=== PATIENT | male | born 1945 | race Two or more races ===

== ENCOUNTER → 2022-05-12 | Outpatient (CLI) | payer OTHER ==
[2022-05-12 10:52] LABS: Basophils # (auto) 0.1 10 ^3/uL (0-0.2); Eosinophils # (auto) 0.1 10 ^3/uL (0-0.8); Eosinophils % (auto) 1.7 % (0.0-7.0); Lymphocytes # (auto) 2.1 10 ^3/uL (0.4-5.4)
[2022-05-12 10:54] LABS: Basophils % (auto) 1.2 % (0.0-2.0); Hematocrit 45.3 % (41.0-53.0); Hemoglobin 14.4 g/dL (13.5-17.5); Mean Corpuscular Hemoglobin 26.6 pg (28.0-32.0); Mean Corpuscular Hgb Conc. 31.9 g/dL (32.0-36.0); Mean Corpuscular Volume 83.5 fL (80.0-100.0); Monocytes # (auto) 0.5 10 ^3/uL (0-1.3); Monocytes % (auto) 8.1 % (0.0-12.0); Neutrophils # (auto) 3.9 10 ^3/uL (1.6-8.6); Red Blood Cells 5.43 10^6/uL (4.5-5.90); Red Cell Distribution Width 15.8 % (11.8-14.3); White Blood Cell 6.7 10^3/uL (4.4-10.8)
[2022-05-12 11:22] LABS: Albumin 3.9 g/dL (3.4-5.0); Potassium 3.6 mmol/L (3.5-5.1)
[2022-05-12 11:27] LABS: BUN/Creatinine Ratio 11.4; Bilirubin, Total 0.4 mg/dL (0.2-1.0); Total Protein 7.3 g/dL (6.4-8.2)
[2022-05-12 11:33] LABS: Micro Albumin 73.1 mg/L (0-30.0)
[2022-05-12 11:40] LABS: Prostate Specific Antigen 9.44 ng/mL (0.0-4.0)
== END | disposition home or self-care (01) ==
LOC: LAB 10:31
DX: E11.8 Type 2 diabetes mellitus with unspecified complications (principal)
CPT/HCPCS: 36415; 80053; 80061; 82043; 82306; 82570; 82607; 83036; 84153; 84154; 84443; 85025

== ENCOUNTER 2023-03-22 12:29 | Emergency (ER) | payer OTHER ==
[~2023-03-22] VITALS: Ht 167.6 cm; Wt 72.7 kg
[2023-03-22 13:39] VITALS: BP 168/90; PULSE 98; RESP 16; O2SAT 97
== END 2023-03-22 16:32 | disposition left against medical advice (07) ==
LOC: ER 12:29 → EDBD 12:29 → ER 16:32
DX: M79.675 Pain in left toe(s) (principal); Z53.21 Procedure and treatment not carried out due to patient leaving prior to being seen by health care provider

== ENCOUNTER 2023-07-14 10:42 | Inpatient (IN) | payer MEDICAID, OTHER ==
[~2023-07-14] VITALS: Ht 170.2 cm; Wt 66.9 kg
[2023-07-14] VITALS (7 sets, daily range): BP systolic 146–181; BP diastolic 61–65; PULSE 64–90; RESP 16–23; TEMP 98.5; O2SAT 90–100
[2023-07-14 11:09] LABS: Eosinophils # (auto) 0.1 10 ^3/uL (0-0.8); Eosinophils % (auto) 0.9 % (0.0-7.0); Monocytes # (auto) 0.9 10 ^3/uL (0-1.3); Neutrophils # (auto) 8.9 10 ^3/uL (1.6-8.6)
[2023-07-14 11:10] LABS: Basophils # (auto) 0.1 10 ^3/uL (0-0.2); Basophils % (auto) 0.8 % (0.0-2.0); Hematocrit 44.6 % (41.0-53.0); Hemoglobin 14.5 g/dL (13.5-17.5); Lymphocytes # (auto) 1.2 10 ^3/uL (0.4-5.4); Lymphocytes % (auto) 10.4 % (10.0-50.0); Mean Corpuscular Hemoglobin 26.7 pg (28.0-32.0); Mean Corpuscular Hgb Conc. 32.5 g/dL (32.0-36.0); Mean Corpuscular Volume 82.3 fL (80.0-100.0); Neutrophils % (auto) 79.9 % (37.0-80.0); Nucleated Red Blood Cells % 0.1 %; Red Blood Cells 5.42 10^6/uL (4.5-5.90); Red Cell Distribution Width 15.8 % (11.8-14.3); White Blood Cell 11.2 10^3/uL (4.4-10.8)
[2023-07-14 11:17] LABS: Urine Bacteria None Seen /hpf (None Seen)
[2023-07-14 11:31] LABS: Alkaline Phosphatase 84 U/L (46-116); Anion Gap 5 (5-15); Aspartate Aminotransferase 20 U/L (13-40); BUN/Creatinine Ratio 18.5 (10.0-20.0); Blood Urea Nitrogen 17 mg/dL (9-23); Calcium 9.5 mg/dL (8.5-10.1); Carbon Dioxide 27 mmol/L (20-30); Chloride 109 mmol/L (98-107); Glucose 176 mg/dL (74-106); Potassium 4.1 mmol/L (3.5-5.1); Sodium 141 mmol/L (136-145)
[2023-07-14 11:32] LABS: Bilirubin, Total 0.6 mg/dL (0.2-1.0); Total Protein 6.3 g/dL (5.7-8.2)
[2023-07-14 11:38] LABS: Alanine Aminotransferase < 9 U/L (7-40)
[2023-07-14 11:50] LABS: Urine Blood Negative /uL (Negative); Urine Clarity Clear (Clear); Urine Color Light-Yellow (Yellow); Urine Hyaline Cast FEW /lpf (0 - 2); Urine Mucus FEW (None Seen); Urine Protein, UAD TRACE (Negative); Urine Specific Gravity 1.017 (1.001-1.035); Urine Urobilinogen Normal (Negative); Urine WBC 3 /hpf (0 - 3)
[2023-07-14] MEDS: IOHEXOL 350 MG/ML 100ML IJ ONE (11:56)
[2023-07-14] MEDS: VERAPAMIL HCL 40 MG TAB PO ONE (15:30)
[2023-07-14] MEDS ORDERED: MORPHINE SULFATE INJ 2 MG/ml SYRG IV PRN ×2 (15:45)
[2023-07-14] MEDS ORDERED: ONDANSETRON HCL 4 MG/2 ML VIAL IV PRN (15:45)
[2023-07-14] MEDS ORDERED: NITROGLYCERIN 0.4 MG SL TAB SL PRN (15:45)
[2023-07-14] MEDS ORDERED: ACETAMINOPHEN 325 MG TAB PO PRN (15:45)
[2023-07-14] MEDS ORDERED: NIFE1TAB31 PO (15:48)
[2023-07-14] MEDS ORDERED: ATOR40TA52 PO (15:48)
[2023-07-14] MEDS ORDERED: VERA240C2 PO (18:22)
[2023-07-14] MEDS: ceFAZolin 1GM/50ML 50 ML IV ONE (18:39)
[2023-07-14] MEDS: ATORVASTATIN 20 MG TAB PO SCH (21:15)
[2023-07-14] MEDS: hydrALAZINE HCL 20 MG/ML VL IV PRN (21:17)
[2023-07-14] MEDS: ALBUTEROL SULF 2.5 MG/0.5ML(0.5%) NEB SOLN NEB PRN (21:44)
[2023-07-14] MEDS: IPRATROPIUM BROM 0.5 MG/2.5ML INH SOL NEB PRN (21:44)
[2023-07-14] MEDS ORDERED: ceFAZolin 1GM/50ML 50 ML IV SCH (22:00)
[2023-07-14 22:47] LABS: COVID19 ANTIGEN SOFIA FIA NEGATIVE (NEGATIVE)
[2023-07-14 23:07] LABS: Rapid Influenza A Negative (Negative); Rapid Influenza B Negative (Negative)
[2023-07-15] VITALS (7 sets, daily range): BP systolic 130–173; BP diastolic 49–88; PULSE 66–102; RESP 16–20; TEMP 98–99; O2SAT 98–100
[2023-07-15 05:49] LABS: Basophils # (auto) 0 10 ^3/uL (0-0.2); Basophils % (auto) 0.5 % (0.0-2.0); Eosinophils # (auto) 0.2 10 ^3/uL (0-0.8); Hemoglobin 14.4 g/dL (13.5-17.5); Monocytes # (auto) 0.8 10 ^3/uL (0-1.3)
[2023-07-15 05:51] LABS: Lymphocytes # (auto) 1.6 10 ^3/uL (0.4-5.4); Lymphocytes % (auto) 18.6 % (10.0-50.0); Mean Corpuscular Hemoglobin 26.4 pg (28.0-32.0); Mean Corpuscular Volume 82.6 fL (80.0-100.0); Monocytes % (auto) 9.1 % (0.0-12.0); Neutrophils # (auto) 5.9 10 ^3/uL (1.6-8.6); Neutrophils % (auto) 69.8 % (37.0-80.0); Nucleated Red Blood Cells % 0.1 %; Red Blood Cells 5.44 10^6/uL (4.5-5.90); White Blood Cell 8.5 10^3/uL (4.4-10.8)
[2023-07-15 06:03] LABS: Alanine Aminotransferase 17 U/L (7-40); Albumin 3.9 g/dL (3.2-4.8); Alkaline Phosphatase 76 U/L (46-116); Anion Gap 5 (5-15); Aspartate Aminotransferase 25 U/L (13-40); BUN/Creatinine Ratio 11.6 (10.0-20.0); Blood Urea Nitrogen 10 mg/dL (9-23); Calcium 9.3 mg/dL (8.5-10.1); Carbon Dioxide 28 mmol/L (20-30); Chloride 110 mmol/L (98-107); Cholesterol 155 mg/dL (< 200); Glucose 92 mg/dL (74-106); HDL Cholesterol 37 mg/dL (40-59); LDL Cholesterol 106 mg/dL (< 100); Potassium 3.8 mmol/L (3.5-5.1); Sodium 143 mmol/L (136-145); Triglycerides 84 mg/dL (< 150)
[2023-07-15 06:04] LABS: Bilirubin, Total 0.6 mg/dL (0.2-1.0); Total Protein 6.5 g/dL (5.7-8.2)
[2023-07-15] MEDS: NIFEdipine ER 30 MG TAB PO SCH (08:22)
[2023-07-15] MEDS: PANTOPRAZOLE 40 MG TAB PO SCH (08:23)
[2023-07-15] MEDS: cefTRIAXone 1GM/50ML D5W 50 ML IV SCH (08:34)
[2023-07-15] MEDS: ENOXAPARIN SOD 40 MG/0.4 ML SYRINGE SC SCH (09:34)
[2023-07-15] MEDS: AZITHROMYCIN 500MG/ 250ML 250 ML IV SCH (09:35)
[2023-07-15 12:12] LABS: Urine Bacteria None Seen /hpf (None Seen)
[2023-07-15 12:22] LABS: Urine Blood Negative /uL (Negative); Urine Clarity Clear (Clear); Urine Color Yellow (Yellow); Urine Mucus FEW (None Seen); Urine Protein, UAD TRACE (Negative); Urine Urobilinogen Normal (Negative); Urine WBC 6 /hpf (0 - 3)
[2023-07-15 12:44] LABS: Amphetamine Screen, Urine Neg (NEGATIVE)
[2023-07-15 12:45] LABS: Barbiturate Scree,Urine Neg (NEGATIVE); Benzodiazephine Screen, Urine Neg (NEGATIVE); Cannabinoid Screen, Urine Neg (NEGATIVE); Cocaine Screen, Urine Neg (NEGATIVE); Opiate Scree,Urine Neg (NEGATIVE); Phencyclidine Screen, Urine Neg (NEGATIVE)
[2023-07-15] MEDS: ASPirin 325 MG TAB PO ONE (14:00)
[2023-07-15] MEDS: FUROSEMIDE 40 MG/4 ML VIAL IV ONE (14:00)
[2023-07-15] MEDS: FUROSEMIDE 20 MG/2 ML VIAL IV SCH (18:37)
[2023-07-15] MEDS: METOPROLOL TARTRATE 25 MG TAB PO SCH (22:24)
[2023-07-16] VITALS (9 sets, daily range): BP systolic 123–161; BP diastolic 54–102; PULSE 62–91; RESP 14–20; TEMP 97.8–98.4; O2SAT 94–100
[2023-07-16] MEDS ORDERED: ASPirin 81 mg TAB PO SCH (10:00)
[2023-07-16] MEDS: NIFEdipine ER 30 MG TAB PO SCH (10:07)
[2023-07-16] MEDS ORDERED: HYDR25TA4 PO (10:15)
[2023-07-16] MEDS: REGADENOSON 0.4 MG/5 ML SYRG IV ONE ×2 (12:00→12:02)
[2023-07-17] VITALS (9 sets, daily range): BP systolic 129–159; BP diastolic 49–71; PULSE 55–75; RESP 15–18; TEMP 97.6–98.7; O2SAT 96–100
[2023-07-17] MEDS: DOCUSATE SOD 100 MG CAP PO PRN (06:19)
[2023-07-17] MEDS: HYDROcodone-ACET 5/325MG TAB PO PRN (13:20)
[2023-07-17] MEDS: RIVAROXABAN 2.5 MG TAB PO SCH (22:06)
[2023-07-18] VITALS (8 sets, daily range): BP systolic 134–168; BP diastolic 47–93; PULSE 55–89; RESP 17–20; TEMP 97.5–98.7; O2SAT 96–100
[2023-07-18] MEDS: FUROSEMIDE 20 MG/2 ML VIAL IV ONE (08:31)
[2023-07-18] MEDS: CLOPIDOGREL BISULFATE 75 MG TAB PO SCH (08:31)
[2023-07-18] MEDS ORDERED: NIFE1TAB31 PO (14:44)
[2023-07-18] MEDS ORDERED: ASPI-325 PO (14:44)
[2023-07-18] MEDS ORDERED: RIVA2.5T PO (14:44)
[2023-07-18] MEDS ORDERED: MET25T PO (14:44)
[2023-07-18] MEDS ORDERED: CLOP75TA70 PO (14:44)
[2023-07-19] VITALS (8 sets, daily range): BP systolic 138–158; BP diastolic 56–80; PULSE 16–69; RESP 17–100; TEMP 97.6–98.6; O2SAT 96–100
[2023-07-19 11:14] LABS: Folate (Folic Acid) 11.05 ng/mL (>5.38)
[2023-07-19 11:16] LABS: Free T4 (Free Thyroxine) 1.01 ng/dL (0.89-1.76)
[2023-07-20 01:03] VITALS: BP 142/60; PULSE 62; RESP 20; TEMP 97.9; O2SAT 100
[2023-07-20 05:00] VITALS: BP 157/55; PULSE 54; RESP 17; TEMP 98; O2SAT 100
[2023-07-20 08:00] VITALS: PULSE 66
[2023-07-20 09:00] VITALS: BP 151/69; PULSE 70; RESP 23; TEMP 97.2; O2SAT 97
[2023-07-20 09:18] LABS: Basophils # (auto) 0.1 10 ^3/uL (0-0.2); Eosinophils # (auto) 0.2 10 ^3/uL (0-0.8); Lymphocytes # (auto) 2.4 10 ^3/uL (0.4-5.4); Monocytes # (auto) 0.5 10 ^3/uL (0-1.3); Neutrophils # (auto) 2.7 10 ^3/uL (1.6-8.6); White Blood Cell 5.9 10^3/uL (4.4-10.8)
[2023-07-20 09:21] LABS: Basophils % (auto) 1.1 % (0.0-2.0); Eosinophils % (auto) 3.9 % (0.0-7.0); Hemoglobin 15.2 g/dL (13.5-17.5); Lymphocytes % (auto) 41.3 % (10.0-50.0); Mean Corpuscular Hgb Conc. 32.3 g/dL (32.0-36.0); Mean Corpuscular Volume 83.8 fL (80.0-100.0); Monocytes % (auto) 8.5 % (0.0-12.0); Neutrophils % (auto) 45.2 % (37.0-80.0); Nucleated Red Blood Cells % 0.1 %; Red Blood Cells 5.61 10^6/uL (4.5-5.90); Red Cell Distribution Width 15.1 % (11.8-14.3)
[2023-07-20 09:30] LABS: Anion Gap 4 (5-15); Carbon Dioxide 33 mmol/L (20-30); Chloride 103 mmol/L (98-107); Potassium 4.1 mmol/L (3.5-5.1); Sodium 140 mmol/L (136-145)
[2023-07-20 09:31] LABS: Calcium 9.7 mg/dL (8.5-10.1)
[2023-07-20 09:36] LABS: BUN/Creatinine Ratio 21.9 (10.0-20.0); Blood Urea Nitrogen 23 mg/dL (9-23); Glucose 188 mg/dL (74-106)
[2023-07-20 10:20] LABS: Magnesium 1.9 mg/dL (1.6-2.6)
== END 2023-07-20 14:00 | disposition home or self-care (01) | DRG 311 ==
LOC: ER 10:42 → EDBD 10:42 → TELE 15:47 → TELE-WESTW 18:21
PROVIDERS: ADMIT Nurse Practitioner Family; ATTEND Internal Medicine
DX: I24.9 Acute ischemic heart disease, unspecified (principal); J15.69 Pneumonia due to other Gram-negative bacteria; J15.9 Unspecified bacterial pneumonia; I50.31 Acute diastolic (congestive) heart failure; E11.52 Type 2 diabetes mellitus with diabetic peripheral angiopathy with gangrene; I11.0 Hypertensive heart disease with heart failure; I16.0 Hypertensive urgency; D72.829 Elevated white blood cell count, unspecified; M71.21 Synovial cyst of popliteal space [Baker], right knee; Z20.822 Contact with and (suspected) exposure to COVID-19; C61 Malignant neoplasm of prostate; E78.5 Hyperlipidemia, unspecified; E11.621 Type 2 diabetes mellitus with foot ulcer; N40.0 Benign prostatic hyperplasia without lower urinary tract symptoms; F17.210 Nicotine dependence, cigarettes, uncomplicated; L97.529 Non-pressure chronic ulcer of other part of left foot with unspecified severity; Z88.6 Allergy status to analgesic agent; Z79.899 Other long term (current) drug therapy; I69.349 Monoplegia of lower limb following cerebral infarction affecting unspecified side; Z79.02 Long term (current) use of antithrombotics/antiplatelets; Z95.5 Presence of coronary angioplasty implant and graft
CPT/HCPCS: 36415; 70551; 71045; 71260; 73700; 74177; 78452; 80048; 80053; 80061; 80307; 81001; 82607; 82746; 83036; 83605; 83735; 83880; 84439; 84443; 84484; 85025; 85379; 87040; 87077; 87086; 87186; 87426; 87804; 93005; 93017; 93306; 93925; 94640; 96374; 97110; 97116; 97163; 97530; G0378

== ENCOUNTER 2024-10-21 14:50 | Inpatient (IN) | payer MEDICAID, OTHER ==
[~2024-10-21] VITALS: Ht 167.6 cm; Wt 61.8 kg
[~2024-10-21 14:50] MED LIST: ASPI-325 PO; ATOR40TA52 PO; CLOP75TA70 PO; HYDR25TA4 PO; MET25T PO; NIFE1TAB31 PO; RIVA2.5T PO; VERA240C2 PO
--- NOTE | 2024-10-21 15:09 | ED.PDOC ---
General HPI Comments HPI: 78y M who presents to the ED via EMS for chief complaint of urinary complaints - EMS states they were called to the scene after has been having difficulty voiding for the past 1 hours - EMS arrived on scene and noted pt was lying in bed with noted urine on bed and pt voiding in near by garbage can - pt is bed bound and states he has been having RLQ and R leg pain and notes despite using CBD oil on the penis, he is continuing to have pain - pt states his pain started last night at 1999 but states it has been exacerbated to due the urinary retention - pt states he has intermittent episodes of urinary retention but states he called EMS due to increasing pain not experienced before while having difficulty attempting to void - Pt has noted R knee hyperflexion contractions which he states is baseline Patient has home health nurse Wednesday through Wednesday but not on weekends. Patient did not take his blood pressure medications today. Past Medical History: HTN, CVA, DM 2 Past Surgical History: denies Social History: Denies ETOH, endorses smoking, denies drug use. Medications: verapamil Allergies: sulfa, ASA HPI: Poor Historian. REVIEW OF SYSTEMS: CONSTITUTIONAL: Denies acute: fever, diaphoresis, chills, HEAD: Denies acute: headache, photophobia Eyes: Denies acute: Double vision, vision loss, eye pain, eye discharge. EARS: Denies acute: tinnitus, hearing loss, ear discharge, ear pain, THROAT: Denies acute: sore throat, swelling, difficulty swallowing , pain with swallowing, change in voice. NECK: Denies acute: neck pain, neck swelling, stiff neck. HEART: Denies acute : chest pain, palpitations, LUNGS: Denies acute: SOB, wheezing, cough, hemoptysis ABDOMEN: Denies acute: Nausea, Vomiting, diarrhea, melena , hematemesis, hematochezia SKIN: Denies acute: rash, redness, lesions, itchiness. EXTREMITIES: Denies acute: calf pain, numbness, tingling, weakness, denies pain in extremity. Denies acute: Low back pain. Neuro: Denies acute: focal neurological deficit, motor or sensory focal neurological deficit, tremors, seizure like activity, confusion, dizziness, change in mental status, loss of bowel or bladder function, cauda equina like symptoms. : Denies acute: dysuria, hematuria, flank pain, increase in urinary frequency. PSYCH: Denies acute: hallucination, suicidal ideation, homicidal ideation. PHYSICAL EXAM: General: ---mild----acute distress, awake and alert. Head: normocephalic, atraumatic. Neck: supple, trachea is midline, no swelling. Throat: Normal phonation. Eyes:, no erythema, no purulent discharge, no proptosis, no icterus. Heart: regular rate, regular rhythm, no significant murmur appreciated. Lungs: no apparent respiratory distress, Able to speak in full sentences. No wheezing, no rhonchi, no crackles. No stridors Clear to auscultation bilaterally. Abdomen: Mild suprapubic tender to palpation, non distended, soft, no guarding, no rebound, + bowel sounds. Neuro: Awake, Alert, oriented to name, self, situation, follows commands GCS=15. Speech is normal. Skin: no petechia, no purpura, no cyanosis, non-pale, not jaundice. Lower extremities: --no - Pitting edema no deformity, no focal swelling, no calf TTP. Makes eye contact. Left eye chronic injury/blindness Uncircumcised external male genitalia. Face: no apparent facial droop. 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 Patient is nonambulatory. Patient is bed ridden. ED COURSE: DISCLAIMER: This medical document was created using an electronic medical record system with voice recognition software and computerized dictation system. Although this document has been carefully reviewed, there might still be some phonetic and typographical errors. Occasional wrong-word or "sound-alike" substitutions may have occurred due to the inherent limitations of voice recognition software. These areas are purely typographical due to imperfections of the software programs and do not reflect any compromise in the patient's medical care. Please read the chart carefully and recognize, using context, where these substitutions have occurred. Chief Complaint: Urinary Time Seen by MD: 15:08 Primary Care Provider: [place] Reviewed notes: Medications, Allergies Allergies: Coded Allergies: Acetaminophen (Verified Allergy, Unknown, 10/25/24) Aspirin (Verified Allergy, Unknown, 07/14/23) Home Meds Active Scripts Oxycodone W/ Acetaminophen (Percocet 5/325MG) 1 Tab Tb, 2 TAB PO Q4HP PRN for 10 Days, #100 TAB Prov:FINN LEMA MD 10/27/24 Senna (Senna) 8.6 Mg Tab, 8.6 MG PO HS for 30 Days, #30 TAB Prov:FINN LEMA MD 10/27/24 Rivaroxaban (Xarelto) 2.5 Mg Tab, 2.5 MG PO BID for 30 Days, #60 TAB 6 Refills Prov:KATHRYN OBREGON DO 07/18/23 Nifedipine (Nifedipine Er) 30 Mg Tab, 90 MG PO DAILY for 30 Days, #90 TAB 6 Refills Prov:KATHRYN OBREGON DO 07/18/23 Metoprolol Tartrate (Lopressor) 25 Mg Tb, 25 MG PO BID for 30 Days, #60 TAB 6 Refills Prov:KATHRYN OBREGON DO 07/18/23 Clopidogrel Bisulfate (CLOPIDOGREL) 75 Mg Tab, 75 MG PO DAILY for 30 Days, #30 TAB 6 Refills Prov:KATHRYN OBREGON DO 07/18/23 Aspirin (Aspirin Low Dose) 81 Mg Tab, 81 MG PO DAILY for 30 Days, #30 TAB 6 Refills Prov:KATHRYN OBREGON DO 07/18/23 Reported Medications Hydrochlorothiazide (Hydrochlorothiazide) 25 Mg Tab, 1 TAB PO DAILY 07/16/23 Verapamil Hcl (Verapamil Hcl Er) 240 Mg Cap, 1 CAP PO DAILY for HTN, #30 CAP 5 Refills 07/14/23 Atorvastatin Calcium (ATORVASTATIN CALCIUM) 40 Mg Tab, 1 TAB PO DAILY 07/14/23 Nifedipine (Nifedipine Er) 30 Mg Tab, 60 MG PO DAILY 07/14/23 Information Source: Patient Past Medical History PAST MEDICAL HISTORY: CVA, HTN Surgical History: Denies all surgeries Family History Family History: Unknown Social History Smoker: Non-Smoker Alcohol: Denies ETOH Use Drugs: Denies Drug Use Lives In: Home Was a procedure done? Was a procedure done?: No Differential Diagnosis Kidney stone (Female): N/A Urinary Problem (Male): Bladder Outlet, Bladder Obstruction, Epididymitis, Pros tatitis, Plelonephritis, Post op Complications, Renal Failure, Urethritis, Urinary Retention, Urolithiasis, UTI, Other (As far as the hypertension: DDX include renal disease, thyroid disease, electrolyte abnormality, increased salt intake, medications non-compliance, undiagnosed HTN, Hypertensive crisis, hypertensive urgency., drug toxicity.) X-Ray, Labs, Meds, VS Vital Signs Date Time Temp Pulse Resp B/P (MAP) Pulse Ox O2 Delivery O2 Flow Rate FiO2 10/21/24 19:35 102 24 171/94 (119) 92 10/21/24 19:35 103 18 98 Room Air* 0 21 10/21/24 18:19 94 Room Air* 0 21 10/21/24 18:11 103 16 97 Room Air* 0 21 10/21/24 18:00 104 16 175/70 (105) 95 10/21/24 17:34 99 145/98 10/21/24 17:00 99 16 145/98 (114) 95 10/21/24 16:38 104 239/93 10/21/24 16:00 116 20 211/97 (135) 95 10/21/24 15:45 98.7 107 20 207/77 (120) 95 98.7 10/21/24 15:29 98.8 74 18 179/88 (118) 95 98.8 Lab Test 10/21/24 16:00 10/21/24 15:52 Range/Units Urine Color Light-yellow Yellow Urine Clarity Clear Clear Urine pH 5.5 5.0-9.0 Urine Specific [place] 1.008 1.001-1.035 Urine Protein Negative Negative Urine Ketones Negative Negative Urine Blood 1+ H Negative /uL Urine Nitrite Negative Negative Urine Bilirubin Negative Negative Urine Urobilinogen Normal Negative mg/dL Urine Leukocyte Esterase Negative Negative /uL Urine RBC 17 0 - 3 /hpf Urine Microscopic WBC 1 0-3 /HPF Urine Squamous Epithelial Cells None seen <5 /hpf Urine Bacteria None seen None Seen /hpf Urine Glucose Normal Normal mg/dL White Blood Count 11.0 H 4.4-10.8 10^3/uL Red Blood Count 5.74 4.5-5.90 10^6/uL Hemoglobin 15.4 13.5-17.5 g/dL Hematocrit 46.5 41.0-53.0 % Mean Corpuscular Volume 81.2 80.0-100.0 fL Mean Corpuscular Hemoglobin 26.8 L 28.0-32.0 pg Mean Corpuscular Hemoglobin Concent 33.0 32.0-36.0 g/dL Red Cell Distribution Width 15.9 H 11.8-14.3 % Platelet Count 765 *H 140-450 10^3/uL Mean Platelet Volume 7.6 6.9-10.8 fL Neutrophils (%) (Auto) 80.9 H 37.0-80.0 % Lymphocytes (%) (Auto) 8.6 L 10.0-50.0 % Monocytes (%) (Auto) 9.1 0.0-12.0 % Eosinophils (%) (Auto) 0.6 0.0-7.0 % Basophils (%) (Auto) 0.8 0.0-2.0 % Neutrophils # (Auto) 8.9 H 1.6-8.6 10 ^3/uL Lymphocytes # (Auto) 0.9 0.4-5.4 10 ^3/uL Monocytes # (Auto) 1.0 0-1.3 10 ^3/uL Eosinophils # (Auto) 0.1 0-0.8 10 ^3/uL Basophils # (Auto) 0.1 0-0.2 10 ^3/uL Nucleated Red Blood Cells 0.0 % Platelet Estimate Marked Large Platelets Few Giant Platelets Few Poikilocytosis (manual) Slight Anisocytosis (manual) Slight Microcytosis Slight Macrocytosis Slight Ovalocytes Few [place] Cells Few Sodium Level 143 136-145 mmol/L Potassium Level 4.0 3.5-5.1 mmol/L Chloride Level 107 98-107 mmol/L Carbon Dioxide Level 25 20-31 mmol/L Anion Gap 11 5-15 Blood Urea Nitrogen 21 9-23 mg/dL Creatinine 1.52 H 0.700-1.30 mg/dL Glomerular Filtration Rate Calc 46 >90 mL/min BUN/Creatinine Ratio 13.8 10.0-20.0 Serum Glucose 155 H 74-106 mg/dL Lactic Acid Level 1.4 0.4-2.0 mmol/L Calcium Level 10.5 H 8.7-10.4 mg/dL Total Bilirubin 0.7 0.2-1.0 mg/dL Aspartate Amino Transferase (AST) 40 13-40 U/L Alanine Aminotransferase (ALT) 22 7-40 U/L Alkaline Phosphatase 99 46-116 U/L C-Reactive Protein High Sensitivity 0.93 <1.0 mg/dL Total Protein 6.8 5.7-8.2 g/dL Albumin 4.3 3.2-4.8 g/dL [address] [address] Ph: [phone] DIAGNOSTIC IMAGING Diagnostic Imaging Report : [id number] Signed PATIENT: DANNY EMMANUEL AACCT: [id number] UNIT: [id number] : 1945 LOC: ER ROOM / BED: / AGE / SEX: 78 / M ADM STATUS: REG ER SERVICE [id number] ORDERING PHYSICIAN: ISRA JACKSON DO PROCEDURE(s): ABPL - CT AB PEL WO CON-NO ORAL OR IV REASON: urinary retention, pelvic pain ORDER NUMBER(s): [id number], ACCESSION NUMBER(s): [id number] Exam: CT CT AB PEL WO CON-NO ORAL OR IV History: urinary retention, pelvic pain Comparison Study: None TECHNIQUE: Multidetector CT of the abdomen was performed from lung bases to pubic symphysis. Imaging was performed without IV contrast. Axial, coronal and sagittal multiplanar reformats were obtained from the axial data set by the technologist. Radiation Dose Information: CT Dose: CTDI volume is 12.06 mGy. Dose-length product is 612.24 mGy*cm FINDINGS: Evaluation of solid organs is limited due to lack of intravenous contrast use. Findings: Lung Bases: No acute or significant lung base finding. Normal heart size. No pleural or pericardial effusion. Liver: The liver is normal in size. No focal lesions. Gallbladder and Biliary Tree: Unremarkable Spleen: Unremarkable Pancreas: The pancreas is grossly normal in appearance. Adrenal Glands: Unremarkable Kidneys: Kidneys are grossly normal without calculi or hydronephrosis. Bladder: De La Cruz catheter in the bladder in the bladder is empty. Bowel: The stomach is grossly normal in appearance. Small bowel and colon are normal in caliber and distribution. The appendix is not visualized; however, no secondary findings of acute appendicitis identified. Ascites: Absent Lymphadenopathy: No mesenteric, retroperitoneal or periportal lymphadenopathy. Abdominal Wall and Mesentery: Unremarkable. Vasculature: The visualized abdominal aorta is normal in size and caliber. Evaluation of abdominal and pelvic vessels is limited due to lack of intravenous contrast. Pelvic Organs: Unremarkable Musculoskeletal: No aggressive focal bony lesions, acute fractures or dislocation. Soft tissues: Unremarkable IMPRESSION: 1. De La Cruz catheter in the bladder in the bladder is empty. 2. Consider PSA to evaluate significance of prostate. 3. 2-3 cm right renal cyst 4. Grade 1 anterior spondylolisthesis at L4-5. Radiation optimization: All CT scans at this facility use at least one of these dose optimization techniques: automated exposure control mA and/or kV adjustment per patient size (includes targeted exams where dose is matched to clinical indication) or iterative reconstruction. ATED BY: JASKARAN GREER Jr., DO DICTATED DATE/TIME: 10/21/241815 SIGNED BY: JASKARAN GREER Jr., SIGNED DATE/TIME: 10/21/241815 CC: Time of 1ST Reevaluation: 00:00 Reevaluation 1ST: N/A Patient Education/Counseling: Diagnosis, Treatment Family Education/Counseling: No Family Present Comments MDM: patient presented with the above HPI.-urinary symptoms-----workup was initiated. patient was found with the above mentioned diagnosis. the following medications were ordered: please refer to order lists of meds and tests obtained by myself Dr. Jackson. Patient ED course and VS have been stabilized. Patient has been reassessed in the ED and remained in a stable condition. Pertinent incidental findings were discussed with the patient and/or family. Patient/family voices understanding and is agreeable with plan. Patient has been observed in the ED adequate length of time to insure i mprovement/stability. Escalation of care considered: Consideration of escalation to observation or admission De La Cruz catheter was placed. Patient was hypertensive and required IV boluses for blood pressure control. Patient was ADMITTED to the medicine team for further evaluation and treatment of their presentation. All the reports of any imaging studies that were ordered by myself were reviewed by myself. SEPSIS Sepsis Screen Physician Orders Ct Ab Pel Wo Con-No Oral Or Iv (10/21/24 15:09) * Wound Consult (10/21/24 ) Vital Signs Date Time Temp Pulse Resp B/P (MAP) Pulse Ox O2 Delivery O2 Flow Rate FiO2 10/21/24 19:35 102 24 171/94 (119) 92 10/21/24 19:35 103 18 98 Room Air* 0 21 10/21/24 18:19 94 Room Air* 0 21 10/21/24 18:11 103 16 97 Room Air* 0 21 10/21/24 18:00 104 16 175/70 (105) 95 10/21/24 17:34 99 145/98 10/21/24 17:00 99 16 145/98 (114) 95 10/21/24 16:38 104 239/93 10/21/24 16:00 116 20 211/97 (135) 95 10/21/24 15:45 98.7 107 20 207/77 (120) 95 98.7 10/21/24 15:29 98.8 74 18 179/88 (118) 95 98.8 Laboratory Tests Test 10/21/24 15:52 Lactic Acid Level 1.4 mmol/L (0.4-2.0) White Blood Count 11.0 10^3/uL (4.4-10.8) H Departure 1 Departure Time of Disposition: 17:33 Impression: Primary Impression: Acute urinary retention Additional Impression: Hypertensive crisis Disposition: ADMITTED INPATIENT Admit to: Tele Condition: Guarded e-Prescriptions Oxycodone W/ Acetaminophen (Percocet 5/325MG) 1 Tab Tb 2 TAB PO Q4HP PRN for 10 Days, #100 TAB Prov: FINN LEMA MD 10/27/24 Senna (Senna) 8.6 Mg Tab 8.6 MG PO HS for 30 Days, #30 TAB Prov: FINN LEMA MD 10/27/24 Discharged With: Self Critical Care Note Critical Care Time?: Yes (55 min-critical care time only) I personally scribed for ISRA JACKSON DO ([email or web address]) on 10/21/24 at 15:08. Electronically submitted by Heraclio Rivas ([facility]). I personally scribed for ISRA JACKSON DO ([email or web address]) on 10/21/24 at 17:11. Electronically submitted by Heraclio Rivas ([facility]). I personally scribed for ISRA JACKSON DO ([email or web address]) on 10/21/24 at 21:36. Electronically submitted by Heraclio Rivas ([facility]). ISRA JACKSON DO Oct 21, 2024 15:08
[2024-10-21 16:08] LABS: Hematocrit 46.5 % (41.0-53.0); Hemoglobin 15.4 g/dL (13.5-17.5); Mean Corpuscular Hemoglobin 26.8 pg (28.0-32.0); Mean Corpuscular Volume 81.2 fL (80.0-100.0); Nucleated Red Blood Cells % 0.0 %
[2024-10-21 16:24] LABS: Alanine Aminotransferase 22 U/L (7-40); Albumin 4.3 g/dL (3.2-4.8); Alkaline Phosphatase 99 U/L (46-116); Anion Gap 11 (5-15); BUN/Creatinine Ratio 13.8 (10.0-20.0); Bilirubin, Total 0.7 mg/dL (0.2-1.0); Blood Urea Nitrogen 21 mg/dL (9-23); Carbon Dioxide 25 mmol/L (20-31); Chloride 107 mmol/L (98-107); Potassium 4.0 mmol/L (3.5-5.1); Sodium 143 mmol/L (136-145); Total Protein 6.8 g/dL (5.7-8.2)
[2024-10-21 16:26] LABS: Calcium 10.5 mg/dL (8.7-10.4); Glucose 155 mg/dL (74-106)
[2024-10-21] MEDS: LABETALOL HCL 20 MG/4 ML VL IV ONE (16:38)
[2024-10-21 16:53] LABS: Anisocytosis Slight; Macrocytosis Slight
[2024-10-21 16:54] LABS: Giant Platelets Few; Ovalocytes FEW
[2024-10-21 17:17] LABS: Urine Protein, UAD Negative (Negative)
[2024-10-21] MEDS: HYDROcodone-ACET 5/325MG TAB PO ONE (18:02)
[2024-10-21 18:11] VITALS: PULSE 103; RESP 16; O2SAT 97
--- NOTE | 2024-10-21 18:18 | DVH ---
Exam: CT CT AB PEL WO CON-NO ORAL OR IV History: urinary retention, pelvic pain Comparison Study: None TECHNIQUE: Multidetector CT of the abdomen was performed from lung bases to pubic symphysis. Imaging was performed without IV contrast. Axial, coronal and sagittal multiplanar reformats were obtained fr om the axial data set by the technologist. Radiation Dose Information: CT Dose: CTDI volume is 12.06 mGy. Dose-length product is 612.24 mGy*cm FINDINGS: Evaluation of solid organs is limited due to lack of intravenous contrast use. Findings: Lung Bases: No acute or significant lung base finding. Normal heart size. No pleural or pericardial effusion. Liver: The liver is normal in size. No focal lesions. Gallbladder and Biliary Tree: Unremarkable Spleen: Unremarkable Pancreas: The pancreas is grossly normal in appearance. Adrenal Glands: Unremarkable Kidneys: Kidneys are grossly normal without calculi or hydronephrosis. Bladder: De La Cruz catheter in the bladder in the bladder is empty. Bowel: The stomach is grossly normal in appearance. Small bowel and colon are normal in caliber and d istribution. The appendix is not visualized; however, no secondary findings of acute appendicitis id entified. Ascites: Absent Lymphadenopathy: No mesenteric, retroperitoneal or periportal lymphadenopathy. Abdominal Wall and Mesentery: Unremarkable. Vasculature: The visualized abdominal aorta is normal in size and caliber. Evaluation of abdominal a nd pelvic vessels is limited due to lack of intravenous contrast. Pelvic Organs: Unremarkable Musculoskeletal: No aggressive focal bony lesions, acute fractures or dislocation. Soft tissues: Unremarkable IMPRESSION: 1. De La Cruz catheter in the bladder in the bladder is empty. 2. Consider PSA to evaluate significance of prostate. 3. 2-3 cm right renal cyst 4. Grade 1 anterior spondylolisthesis at L4-5. Radiation optimization: All CT scans at this facility use at least one of these dose optimization te chniques: automated exposure control mA and/or kV adjustment per patient size (includes targeted exa ms where dose is matched to clinical indication) or iterative reconstruction.
[2024-10-21 19:35] VITALS: PULSE 103; RESP 18; O2SAT 98
[2024-10-21] MEDS ORDERED: ONDANSETRON HCL 4 MG/2 ML VIAL IV PRN (19:45)
--- NOTE | 2024-10-21 19:50 | DVHHP2 ---
Admitting Diagnosis: Abdominal pain History of Present Illness 78y M who presents to the ED via EMS for chief complaint of urinary complaints, EMS states they were called to the scene after has been having diffi culty voiding for the past 1 hours- EMS arrived on scene and noted pt was lying in bed with noted urine on bed and pt voiding in near by garbage can- pt is bed bound and states he has been having RLQ and R leg pain and notes despite using CBD oil on the penis, he is continuing to have pain- pt states his pain started las night at 2000 but states it has been exacerbated to due the urinary retention- pt states he has intermittent episodes of urinary retention but states he called EMS due to increasing pain not experienced before while having difficulty attempting to void- Pt has noted R knee hyperflexion contractions which he states is baseline. Patient has home health nurse Wednesday through Wednesday but not on weekends.Patient did not take his blood pressure medications today. Past Medical History: HTN, CVA, DM 2 Past Surgical History: denies Social History: Denies ETOH, endorses smoking, denies drug use. Medications: verapamil Allergies: sulfa, ASA REVIEW OF SYSTEMS: CONSTITUTIONAL: Denies acute: fever, diaphoresis, chills, HEAD: Denies acute: headache, photophobia Eyes: Denies acute: Double vision, vision loss, eye pain, eye discharge. EARS: Denies acute: tinnitus, hearing loss, ear discharge, ear pain, THROAT: Denies acute: sore throat, swelling, difficulty swallowing , pain with swallowing, change in voice. NECK: Denies acute: neck pain, neck swelling, stiff neck. HEART: Denies acute : chest pain, palpitations, LUNGS: Denies acute: SOB, wheezing, cough, hemoptysis ABDOMEN: Denies acute: Nausea, Vomiting, diarrhea, melena , hematemesis, hematochezia SKIN: Denies acute: rash, redness, lesions, itchiness. EXTREMITIES: Denies acute: calf pain, numbness, tingling, weakness, denies pain in extremity. Denies acute: Low back pain. Neuro: Denies acute: focal neurological deficit, motor or sensory focal neurological deficit, tremors, seizure like activity, confusion, dizziness, change in mental status, loss of bowel or bladder function, cauda equina like symptoms. : Denies acute: dysuria, hematuria, flank pain, increase in urinary frequency PSYCH: Denies acute: hallucination, suicidal ideation, homicidal ideation. PAST MEDICAL HISTORY: CVA, HTN Surgical History: Denies all surgeries Family History Family History: Unknown Social History Smoker: Non-Smoker Alcohol: Denies ETOH Use Drugs: Denies Drug Use Lives In: Home Procedure Was a procedure done? Was a procedure done?: No Patient Family History: FH: rheumatic heart disease G8 MOTHER Tetanus G8 MOTHER Allergies: Coded Allergies: Aspirin (Verified Allergy, Unknown, 07/14/23) Home Meds Active Scripts Rivaroxaban (Xarelto) 2.5 Mg Tab, 2.5 MG PO BID for 30 Days, #60 TAB 6 Refills Prov:OBREGONKATHRYN Downs DO 07/18/23 Nifedipine (Nifedipine Er) 30 Mg Tab, 90 MG PO DAILY for 30 Days, #90 TAB 6 Refills Prov:OBREGONKATHRYN Downs DO 07/18/23 Metoprolol Tartrate (Lopressor) 25 Mg Tb, 25 MG PO BID for 30 Days, #60 TAB 6 Refills Prov:OBREGONKATHRYN Downs DO 07/18/23 Clopidogrel Bisulfate (CLOPIDOGREL) 75 Mg Tab, 75 MG PO DAILY for 30 Days, #30 TAB 6 Refills Prov:OBREGONKATHRYN Downs DO 07/18/23 Aspirin (Aspirin Low Dose) 81 Mg Tab, 81 MG PO DAILY for 30 Days, #30 TAB 6 Refills Prov:KATHRYN OBREGON DO 07/18/23 Reported Medications Hydrochlorothiazide (Hydrochlorothiazide) 25 Mg Tab, 1 TAB PO DAILY 07/16/23 Verapamil Hcl (Verapamil Hcl Er) 240 Mg Cap, 1 CAP PO DAILY for HTN, #30 CAP 5 Refills 07/14/23 Atorvastatin Calcium (ATORVASTATIN CALCIUM) 40 Mg Tab, 1 TAB PO DAILY 07/14/23 Nifedipine (Nifedipine Er) 30 Mg Tab, 60 MG PO DAILY 07/14/23 Current Medications Current Medications Medications (Trade) Dose Ordered Sig/Sherlyn Route PRN Reason Start Time Stop Time Status Last Admin Hydralazine HCl (Apresoline Injection) 10 mg Q6HP PRN IV SBP>150 10/21/24 19:45 UNV Tamsulosin HCl (Flomax) 0.4 mg DAILY PO 10/21/24 19:45 UNV Sodium Chloride (Saline Lock Ns) 10 ml Q8HR IV 10/21/24 22:00 UNV Acetaminophen (Tylenol Tablet) 650 mg Q6HP PRN PO PAIN SCALE 1-3 OR TEMP>100.4 10/21/24 19:45 UNV Acetaminophen/ Hydrocodone Bitart (Mobile 5/325MG Tab) 1 tab Q4HP PRN PO MODERATE PAIN (4-6 PAIN SCALE) 10/21/24 19:45 UNV Ondansetron HCl (Zofran) 4 mg Q4HP PRN IV NAUSEA / VOMITING 10/21/24 19:45 UNV Clopidogrel Bisulfate (Plavix) 75 mg DAILY PO 10/22/24 10:00 UNV Metoprolol Tartrate (Lopressor Tablet) 25 mg BID PO 10/21/24 22:00 UNV Nifedipine (Procardia Xl (Time-Release)) 90 mg DAILY PO 10/22/24 10:00 UNV Patient Own Medication 1 tab DAILY PO 10/22/24 10:00 UNV Rivaroxaban (Xarelto) 2.5 mg BID PO 10/21/24 22:00 UNV Vital Signs Vital Signs Date Time Temp Pulse Resp B/P (MAP) Pulse Ox O2 Delivery O2 Flow Rate FiO2 10/21/24 18:19 94 Room Air* 0 21 10/21/24 18:11 103 16 10/21/24 18:00 175/70 (105) 10/21/24 15:45 98.7 98.7 Physical Exam gen: 78 y.o. man, lying in bed. Mild distress HEENT-atraumatic, normocephalic Heart-regular rate and rhythm Lungs clear to auscultate Abdomen soft nontender nondistended Musculoskeletal-no edema , right 3rd toe is cyanosis, gangrene. Tender to palpate Neuro-AO x3, no focal deficits SEPSIS Sepsis Screen Date sepsis recognized/suspect: Oct 21, 2024 Time Sepsis recognized/suspect: 1814 Recent Procedure: No On Antibiotic Therapy: No Respiratory Rate >20: No Heart Rate >90: No Temp<36 C (96.8 F) or >38.3 C: No SBP <90 or MAP <65 mmHG: No New Acute Mental Status Change: No Is the patient on CPAP, BIPAP,: No Physician Orders Ct Ab Pel Wo Con-No Oral Or Iv (10/21/24 15:09) Insert/Manage Urinary Catheter QSHIFT (10/21/24 16:00) * Wound Consult (10/21/24 ) Hydralazine Injection (Apresoline Inject (10/21/24 19:45) Complete Blood Count (10/22/24 05:00) Complete Blood Count (10/23/24 05:00) Complete Blood Count (10/24/24 05:00) Complete Blood Count (10/25/24 05:00) Complete Blood Count (10/26/24 05:00) Comprehensive Metabolic Panel (10/22/24 05:00) Comprehensive Metabolic Panel (10/23/24 05:00) Comprehensive Metabolic Panel (10/24/24 05:00) Comprehensive Metabolic Panel (10/25/24 05:00) Comprehensive Metabolic Panel (10/26/24 05:00) Tamsulosin Hydrochloride (Flomax) (10/21/24 19:45) Renal Standard(2gna,3gk,Lopho) (10/22/24 Breakfast) Admit (10/21/24 19:38) Code Status (10/21/24 19:38) Vital Signs .PER UNIT PROTOCOL (10/21/24 19:38) Review Orders With Adm.Md (10/21/24 19:38) Encourage Activity As Tolerate (10/21/24 19:38) Sodium Chloride Lock (Saline Lock Ns) (10/21/24 22:00) Acetaminophen Tablet (Tylenol Tablet) (10/21/24 19:45) Notify Md Of Changes From Base (10/21/24 19:38) Advance Directive (10/21/24 19:38) Patient Condition (10/21/24 19:38) Allergies (10/21/24 19:38) Hydrocodone-Acet 5/325mg Tab (Mobile 5/32 (10/21/24 19:45) Ondansetron Hcl (Zofran) (10/21/24 19:45) Clopidogrel Bisulfate (Plavix) (10/22/24 10:00) Metoprolol Tartrate Tablet (Lopressor Ta (10/21/24 22:00) Nifedipine Er (Procardia Xl (Time-Releas (10/22/24 10:00) (Nf) Atorvastatin Calcium (10/22/24 10:00) Rivaroxaban Tablet (Xarelto) (10/21/24 22:00) Vital Signs Date Time Temp Pulse Resp B/P (MAP) Pulse Ox O2 Delivery O2 Flow Rate FiO2 10/21/24 18:19 94 Room Air* 0 21 10/21/24 18:11 103 16 97 Room Air* 0 21 10/21/24 18:00 104 16 175/70 (105) 95 10/21/24 17:34 99 145/98 10/21/24 17:00 99 16 145/98 (114) 95 10/21/24 16:38 104 239/93 10/21/24 16:00 116 20 211/97 (135) 95 10/21/24 15:45 98.7 107 20 207/77 (120) 95 98.7 10/21/24 15:29 98.8 74 18 179/88 (118) 95 98.8 Laboratory Tests Test 10/21/24 15:52 Lactic Acid Level 1.4 mmol/L (0.4-2.0) White Blood Count 11.0 10^3/uL (4.4-10.8) H Medications Medications Dose Ordered Sig/Sherlyn Route Start Time Stop Time Status Last Admin Dose Admin Acetaminophen/ Hydrocodone Bitart 1 tab ONCE ONCE PO 10/21/24 18:00 10/21/24 18:01 DC 10/21/24 18:02 Labetalol HCl 5 mg ONCE ONCE IV 10/21/24 16:15 10/21/24 16:16 DC 10/21/24 16:38 Results Labs Test 10/21/24 16:00 10/21/24 15:52 Range/Units Urine Color Light-yellow Yellow Urine Clarity Clear Clear Urine pH 5.5 5.0-9.0 Urine Specific [place] 1.008 1.001-1.035 Urine Protein Negative Negative Urine Ketones Negative Negative Urine Blood 1+ H Negative /uL Urine Nitrite Negative Negative Urine Bilirubin Negative Negative Urine Urobilinogen Normal Negative mg/dL Urine Leukocyte Esterase Negative Negative /uL Urine RBC 17 0 - 3 /hpf Urine Microscopic WBC 1 0-3 /HPF Urine Squamous Epithelial Cells None seen <5 /hpf Urine Bacteria None seen None Seen /hpf Urine Glucose Normal Normal mg/dL White Blood Count 11.0 H 4.4-10.8 10^3/uL Red Blood Count 5.74 4.5-5.90 10^6/uL Hemoglobin 15.4 13.5-17.5 g/dL Hematocrit 46.5 41.0-53.0 % Mean Corpuscular Volume 81.2 80.0-100.0 fL Mean Corpuscular Hemoglobin 26.8 L 28.0-32.0 pg Mean Corpuscular Hemoglobin Concent 33.0 32.0-36.0 g/dL Red Cell Distribution Width 15.9 H 11.8-14.3 % Platelet Count 765 *H 140-450 10^3/uL Mean Platelet Volume 7.6 6.9-10.8 fL Neutrophils (%) (Auto) 80.9 H 37.0-80.0 % Lymphocytes (%) (Auto) 8.6 L 10.0-50.0 % Monocytes (%) (Auto) 9.1 0.0-12.0 % Eosinophils (%) (Auto) 0.6 0.0-7.0 % Basophils (%) (Auto) 0.8 0.0-2.0 % Neutrophils # (Auto) 8.9 H 1.6-8.6 10 ^3/uL Lymphocytes # (Auto) 0.9 0.4-5.4 10 ^3/uL Monocytes # (Auto) 1.0 0-1.3 10 ^3/uL Eosinophils # (Auto) 0.1 0-0.8 10 ^3/uL Basophils # (Auto) 0.1 0-0.2 10 ^3/uL Nucleated Red Blood Cells 0.0 % Platelet Estimate Marked Large Platelets Few Giant Platelets Few Poikilocytosis (manual) Slight Anisocytosis (manual) Slight Microcytosis Slight Macrocytosis Slight Ovalocytes Few Devaughn Cells Few Sodium Level 143 136-145 mmol/L Potassium Level 4.0 3.5-5.1 mmol/L Chloride Level 107 98-107 mmol/L Carbon Dioxide Level 25 20-31 mmol/L Anion Gap 11 5-15 Blood Urea Nitrogen 21 9-23 mg/dL Creatinine 1.52 H 0.700-1.30 mg/dL Glomerular Filtration Rate Calc 46 >90 mL/min BUN/Creatinine Ratio 13.8 10.0-20.0 Serum Glucose 155 H 74-106 mg/dL Lactic Acid Level 1.4 0.4-2.0 mmol/L Calcium Level 10.5 H 8.7-10.4 mg/dL Total Bilirubin 0.7 0.2-1.0 mg/dL Aspartate Amino Transferase (AST) 40 13-40 U/L Alanine Aminotransferase (ALT) 22 7-40 U/L Alkaline Phosphatase 99 46-116 U/L Total Protein 6.8 5.7-8.2 g/dL Albumin 4.3 3.2-4.8 g/dL Primary Diagnosis Acute bladder retention History of CVA right foot gangrene Plan Patient is not medically compliant patient says he was not taking any medication being homeless Right foot gangrene Start vanc and Zosyn for broad-spectrum antibiotics Check blood culture Check CRP Check x-ray of the right foot Resume home meds including Xarelto 2.5 mg b.i.d. suspect likely due to for PAD CT abdomen and pelvis with a rule out to lower extremity to assess for stenosis Check EKG Insert [place] for acute urinary retention Start tamsulosin IV fluids Full code Eliquis for DVT prophylaxis PPI for GI prophylax Plan discussed with: Patient Problems List: (1) Acute urinary retention Status: Acute (2) Hypertensive crisis Status: Acute (3) Diabetic foot ulcer associated with type 2 diabetes mellitus, with fat layer exposed (4) Gangrene of left foot Date of Service: Oct 21, 2024 Billing Provider: AMNA LUA MD Common Visit Codes: [id number] INP/OBS CARE (HIGH) AMNA LUA MD Oct 21, 2024 19:50
[2024-10-21] MEDS: ACETAMINOPHEN 325 MG TAB PO PRN (20:30)
[2024-10-21] MEDS: hydrALAZINE HCL 20 MG/ML VL IV PRN (20:30)
[2024-10-21] MEDS: HYDROcodone-ACET 5/325MG TAB PO PRN (20:30)
[2024-10-21] MEDS: IOHEXOL 350 MG/ML 100ML IJ ONE (21:03)
[2024-10-21] MEDS: TAMSULOSIN HYDROCHLORIDE 0.4 MG CAP PO SCH (21:25)
[2024-10-21] MEDS: SODIUM CHLOR 0.9% PF (SALINE LOCK) 10ML VIAL/SYR IV SCH (21:26)
[2024-10-21] MEDS: METOPROLOL TARTRATE 25 MG TAB PO SCH (21:26)
[2024-10-21] MEDS: RIVAROXABAN 2.5 MG TAB PO SCH (21:28)
[2024-10-21 22:07] VITALS: BP 149/66; PULSE 77; RESP 17; TEMP 97.5; O2SAT 96
[2024-10-22] VITALS (7 sets, daily range): BP systolic 147–187; BP diastolic 67–93; PULSE 88–96; RESP 16–20; TEMP 97–98.1; O2SAT 92–96
[2024-10-22] MEDS: DOCUSATE SOD 100 MG CAP PO ONE (04:42)
[2024-10-22 06:07] LABS: Nucleated Red Blood Cells % 0.0 %
[2024-10-22 06:10] LABS: Hematocrit 45.8 % (41.0-53.0); Hemoglobin 14.9 g/dL (13.5-17.5); Mean Corpuscular Hemoglobin 26.4 pg (28.0-32.0); Mean Corpuscular Volume 81.1 fL (80.0-100.0)
[2024-10-22 06:35] LABS: Alanine Aminotransferase 18 U/L (7-40); Albumin 4.1 g/dL (3.2-4.8); Alkaline Phosphatase 89 U/L (46-116); BUN/Creatinine Ratio 17.1 (10.0-20.0); Bilirubin, Total 0.7 mg/dL (0.2-1.0); Blood Urea Nitrogen 20 mg/dL (9-23); Calcium 9.6 mg/dL (8.7-10.4); Chloride 107 mmol/L (98-107); Glucose 137 mg/dL (74-106); Potassium 3.6 mmol/L (3.5-5.1); Sodium 143 mmol/L (136-145); Total Protein 6.7 g/dL (5.7-8.2)
[2024-10-22 06:45] LABS: Anion Gap 13 (5-15); Carbon Dioxide 23 mmol/L (20-31)
[2024-10-22 06:46] LABS: Anisocytosis Slight; Giant Platelets Few; Tear Drop Cells FEW
[2024-10-22] MEDS: ATORVASTATIN 20 MG TAB PO SCH (08:19)
[2024-10-22] MEDS: CLOPIDOGREL BISULFATE 75 MG TAB PO SCH (08:20)
--- NOTE | 2024-10-22 09:23 | DVH ---
XY R FOOT 2 VIEW XRAY, INDICATION: right foot gangrene r/o OM TECHNICAL DATA: Frontal, and lateral views were obtained of the right foot. COMPARISON: None FINDINGS: There is prominent periarticular osteopenia however no obvious cortical erosions are visualized. Join t spaces are maintained. Alignment is anatomic. The hallux sesamoids appear normal. IMPRESSION: prominent periarticular osteopenia however no obvious cortical erosions are visualized.
--- NOTE | 2024-10-22 10:44 | DVH ---
Indication: RT FOOT GANGRENE Technique: Real- time ultrasound images of the lower extremity with grayscale, color, and spectral wave Doppler. Comparison: US BILAT LOW EXT ART DUPLEX on DOS: 07/16/23 Findings: Monophasic waveform in the right CRITICAL CARE PHYSICIAN. Occlusion of the right SFA. Monophasic waveform in the right p osterior tibial and dorsalis pedis arteries. Extensive atherosclerotic disease. Peak systolic velocities are as follows (in cm/s): Right: Common femoral artery: 139 Profunda femoris: 99 Proximal superficial femoral: 0 Mid superficial femoral artery: Nonvisualized Distal superficial femoral artery: 0 Popliteal artery: Nonvisualized Posterior tibial artery: 83 Dorsalis pedis artery: 27 Impression: Severe peripheral arterial disease with occlusion of the right SFA. Recommend vascular surgery consu ltation.
[2024-10-22] MEDS ORDERED: DEXTROSE (50%) 50ML SYRG IV PRN (12:15)
--- NOTE | 2024-10-22 13:50 | DVHPN2 ---
Subjective Clinically stable. Has old CVA with a chronic contractures in the lower extremity. Patient has diagnosis gangrene 3rd toe in the right foot apparently for few weeks according to patient. Changes from previous H/P or p: No Changes Objective Vitals Vital Signs Date Time Temp Pulse Resp B/P (MAP) Pulse Ox O2 Delivery O2 Flow Rate FiO2 10/22/24 12:16 187/93 10/22/24 09:20 88 10/22/24 08:30 97.0 18 94 97.0 10/22/24 08:00 Room Air* 0 21 Intake/Output Intake and Output 10/22/24 07:00 Intake Total 700 ml Output Total 700 ml Balance 0 ml Intake Oral 700 ml Output Urine Total 700 ml # Voids 5 Exam Alert awake oriented to place and person. Comfortable in bed without distress. Requesting his pain medications to be increased. Medications Current Medications Medications Dose Ordered Sig/Sherlyn Route Start Time Stop Time Status Last Admin Dose Admin Tamsulosin HCl 0.4 mg DAILY PO 10/21/24 19:45 10/22/24 08:19 0.4 MG Sodium Chloride 10 ml Q8HR IV 10/21/24 22:00 10/22/24 05:35 10 ML Acetaminophen 650 mg Q6HP PRN PO 10/21/24 19:45 10/21/24 20:30 650 MG Ondansetron HCl 4 mg Q4HP PRN IV 10/21/24 19:45 Clopidogrel Bisulfate 75 mg DAILY PO 10/22/24 10:00 10/22/24 08:20 75 MG Metoprolol Tartrate 25 mg BID PO 10/21/24 22:00 10/22/24 08:20 25 MG Atorvastatin Calcium 40 mg DAILY PO 10/22/24 10:00 10/22/24 08:19 40 MG Rivaroxaban 2.5 mg BID PO 10/21/24 22:00 Diagnostic Test (Pha) 1 strip Q6HR 10/22/24 18:00 Insulin Human Regular Q6HR SC 10/22/24 18:00 Dextrose 50 ml UD PRN IV 10/22/24 12:15 Ceftriaxone Sodium 50 ml @ 100 mls/hr DAILY@09 IV 10/23/24 09:00 Nifedipine 60 mg BID PO 10/22/24 22:00 Hydralazine HCl 25 mg Q8HR PO 10/22/24 14:00 Acetaminophen/ Hydrocodone Bitart 1 tab Q4HP PRN PO 10/22/24 12:30 Methocarbamol 500 mg TID PO 10/22/24 14:00 Laboratory Results Laboratory Tests 10/22/24 05:01 Chemistry Test 10/21/24 15:52 10/22/24 05:01 Albumin 4.3 g/dL (3.2-4.8) 4.1 g/dL (3.2-4.8) Calcium Level 10.5 mg/dL (8.7-10.4) H 9.6 mg/dL (8.7-10.4) Total Protein 6.8 g/dL (5.7-8.2) 6.7 g/dL (5.7-8.2) LFT Test 10/21/24 15:52 10/22/24 05:01 Alanine Aminotransferase (ALT) 22 U/L (7-40) 18 U/L (7-40) Alkaline Phosphatase 99 U/L (46-116) 89 U/L (46-116) Aspartate Amino Transferase (AST) 40 U/L (13-40) 40 U/L (13-40) Total Bilirubin 0.7 mg/dL (0.2-1.0) 0.7 mg/dL (0.2-1.0) HgA1c, TSH Test 10/22/24 05:01 Hemoglobin A1c 6.5 % A1C (<5.7) H Urinalysis Test 10/21/24 16:00 Urine Color Light-yellow (Yellow) Urine Clarity Clear (Clear) Urine pH 5.5 (5.0-9.0) Urine Specific [place] 1.008 (1.001-1.035) Urine Protein Negative (Negative) Urine Ketones Negative (Negative) Urine Blood 1+ /uL (Negative) H Urine Nitrite Negative (Negative) Urine Bilirubin Negative (Negative) Urine Urobilinogen Normal mg/dL (Negative) Urine Leukocyte Esterase Negative /uL (Negative) Urine RBC 17 /hpf (0 - 3) Urine Microscopic WBC 1 /HPF (0-3) Urine Squamous Epithelial Cells None seen /hpf (<5) Urine Bacteria None seen /hpf (None Seen) Urine Glucose Normal mg/dL (Normal) Labs and/or images reviewed: Labs reviewed by me Assessment/Plan Assessment/Plan Currently he is clinically stable. His labs and images results reviewed. I will put a vascular consultation for superficial femoral artery occlusion. We will adjust his [place] and add muscle relaxant. Podiatry consultation for evaluation of toe gangrene and to consider amputation. Otherwise continue antiplatelet therapy and statin. Continue cardiac medications. Continue rest of supportive care and treatment. Follow the echocardiogram results. Otherwise further clinical management per clinical course. Discussed with the patient and nurse regarding care plan. Plan discussed with: Patient, Other My Orders Orders - ELLIOTT MITCHELL MD Procedure Category Date Status Time Glucose Blood PHA 10/22/24 In Process (Accu-Chek Comfort 18:00 Insulin R (Human) PHA 10/22/24 In Process (Insulin R) 18:00 Dextrose 50% Syringe PHA 10/22/24 In Process 12:15 Podiatry Consult CONS 10/22/24 Transmitted 12:15 Echo 2d Mode Cardiac US 10/22/24 Logged DOP 12:15 Consult CONS 10/22/24 Transmitted Vascular/Endovascular 12:15 Ceftriaxone 1gm/50ml PHA 10/23/24 In Process D5w (Rocephin) 09:00 Nifedipine Er PHA 10/22/24 In Process (Procardia Xl 22:00 Hydralazine Hcl PHA 10/22/24 In Process Tablet (Apresoline 14:00 Hydrocodone-Acet PHA 10/22/24 In Process 10/325mg Tab ([place] 12:30 Methocarbamol PHA 10/22/24 In Process (Robaxin) 14:00 Problem List: (1) Diabetic foot ulcer associated with type 2 diabetes mellitus, with fat layer exposed (2) Gangrene of left foot (3) Acute urinary retention (4) Chest pain Date of Service: Oct 22, 2024 Billing Provider: ELLIOTT MITCHELL MD Common Visit Codes: [id number] INP/OBS CARE(MOD) ELLIOTT MITCHELL MD Oct 22, 2024 13:50
[2024-10-22] MEDS: METHOCARBAMOL 500 MG TAB PO SCH (14:00)
[2024-10-22] MEDS: ACCU-CHEK COMFORT CURVE STRIP VI SCH (18:12)
[2024-10-22] MEDS: InsuLIN REG 1unit/0.01ml Soln (100units/ml) SC SCH (18:22)
[2024-10-22] MEDS: HYDROcodone-ACET 10/325MG TAB PO PRN (20:26)
[2024-10-23] VITALS (8 sets, daily range): BP systolic 118–155; BP diastolic 65–78; PULSE 74–95; RESP 16–20; TEMP 98–98.7; O2SAT 93–96
[2024-10-23] MEDS: MORPHINE SULFATE INJ 2 MG/ml SYRG IV ONE (00:16)
[2024-10-23 06:30] LABS: Hematocrit 46.2 % (41.0-53.0); Hemoglobin 15.2 g/dL (13.5-17.5); Mean Corpuscular Hemoglobin 26.8 pg (28.0-32.0); Mean Corpuscular Volume 81.7 fL (80.0-100.0); Nucleated Red Blood Cells % 0.1 %
[2024-10-23 06:48] LABS: Alanine Aminotransferase 24 U/L (7-40); Albumin 4.4 g/dL (3.2-4.8); Alkaline Phosphatase 85 U/L (46-116); Anion Gap 12 (5-15); BUN/Creatinine Ratio 22.2 (10.0-20.0); Bilirubin, Total 0.6 mg/dL (0.2-1.0); Blood Urea Nitrogen 22 mg/dL (9-23); Carbon Dioxide 25 mmol/L (20-31); Chloride 107 mmol/L (98-107); Glucose 101 mg/dL (74-106); Sodium 144 mmol/L (136-145); Total Protein 7.1 g/dL (5.7-8.2)
[2024-10-23 06:50] LABS: Calcium 10.6 mg/dL (8.7-10.4); Potassium 3.4 mmol/L (3.5-5.1)
[2024-10-23] MEDS: cefTRIAXone 1GM/50ML D5W 50 ML IV SCH (09:00)
[2024-10-23 10:14] LABS: Hepatitis B Surface Antigen Negative (Negative)
[2024-10-23] MEDS: POTASSIUM CHL 20 Meq TABLET PO ONE (10:30)
[2024-10-23 10:38] LABS: Hepatitis C Antibody Negative (Negative)
[2024-10-23] MEDS ORDERED: HYDROcodone-ACET 5/325MG TAB PO PRN (11:30)
[2024-10-23] MEDS: MORPHINE SULFATE INJ 2 MG/ml SYRG IV PRN (12:06)
--- NOTE | 2024-10-23 13:34 | DVHPN2 ---
Subjective Patient's remains clinically stable. However says his pain is not controlled. He uses CBD at home for pain control. Waiting for Podiatry consultation apparently not available till tomorrow. Changes from previous H/P or p: No Changes Objective Vitals Vital Signs Date Time Temp Pulse Resp B/P (MAP) Pulse Ox O2 Delivery O2 Flow Rate FiO2 10/23/24 09:49 155/75 10/23/24 09:49 95 10/23/24 08:00 16 Room Air* 0 21 10/23/24 05:00 98.0 95 98.0 Intake/Output Intake and Output 10/23/24 07:00 Intake Total 300 ml Output Total 1100 ml Balance -800 ml Intake Oral 300 ml Output Urine Total 1100 ml Exam Alert awake oriented to place and person. Comfortable in bed without distress. Requesting his pain medications to be increased. Medications Current Medications Medications Dose Ordered Sig/Sherlyn Route Start Time Stop Time Status Last Admin Dose Admin Tamsulosin HCl 0.4 mg DAILY PO 10/21/24 19:45 10/23/24 09:48 0.4 MG Sodium Chloride 10 ml Q8HR IV 10/21/24 22:00 10/23/24 05:28 10 ML Acetaminophen 650 mg Q6HP PRN PO 10/21/24 19:45 10/21/24 20:30 650 MG Ondansetron HCl 4 mg Q4HP PRN IV 10/21/24 19:45 Clopidogrel Bisulfate 75 mg DAILY PO 10/22/24 10:00 10/23/24 09:49 75 MG Metoprolol Tartrate 25 mg BID PO 10/21/24 22:00 10/23/24 09:49 25 MG Atorvastatin Calcium 40 mg DAILY PO 10/22/24 10:00 10/23/24 09:49 40 MG Rivaroxaban 2.5 mg BID PO 10/21/24 22:00 10/23/24 09:48 2.5 MG Diagnostic Test (Pha) 1 strip Q6HR 10/22/24 18:00 10/23/24 12:04 1 STRIP Insulin Human Regular Q6HR SC 10/22/24 18:00 10/23/24 12:05 3 UNITS Dextrose 50 ml UD PRN IV 10/22/24 12:15 Ceftriaxone Sodium 50 ml @ 100 mls/hr DAILY@09 IV 10/23/24 09:00 10/23/24 09:00 100 MLS/HR Nifedipine 60 mg BID PO 10/22/24 22:00 10/23/24 09:49 60 MG Hydralazine HCl 25 mg Q8HR PO 10/22/24 14:00 10/23/24 05:29 25 MG Methocarbamol 500 mg TID PO 10/22/24 14:00 10/23/24 05:29 500 MG Morphine Sulfate 2 mg Q4HPRN PRN IV 10/23/24 11:30 Acetaminophen/ Hydrocodone Bitart 1 tab Q4HPRN PRN PO 10/23/24 11:30 Laboratory Results Laboratory Tests 10/23/24 05:16 Chemistry Test 10/23/24 05:16 Albumin 4.4 g/dL (3.2-4.8) Calcium Level 10.6 mg/dL (8.7-10.4) H Total Protein 7.1 g/dL (5.7-8.2) LFT Test 10/23/24 05:16 Alanine Aminotransferase (ALT) 24 U/L (7-40) Alkaline Phosphatase 85 U/L (46-116) Aspartate Amino Transferase (AST) 55 U/L (13-40) H Total Bilirubin 0.6 mg/dL (0.2-1.0) Urinalysis Test 10/21/24 16:00 Urine Color Light-yellow (Yellow) Urine Clarity Clear (Clear) Urine pH 5.5 (5.0-9.0) Urine Specific [place] 1.008 (1.001-1.035) Urine Protein Negative (Negative) Urine Ketones Negative (Negative) Urine Blood 1+ /uL (Negative) H Urine Nitrite Negative (Negative) Urine Bilirubin Negative (Negative) Urine Urobilinogen Normal mg/dL (Negative) Urine Leukocyte Esterase Negative /uL (Negative) Urine RBC 17 /hpf (0 - 3) Urine Microscopic WBC 1 /HPF (0-3) Urine Squamous Epithelial Cells None seen /hpf (<5) Urine Bacteria None seen /hpf (None Seen) Urine Glucose Normal mg/dL (Normal) Labs and/or images reviewed: Labs reviewed by me Assessment/Plan Assessment/Plan Currently he is clinically stable. I will DC [place] and start him on Percocet for pain control. Await vascular/Cardiology and Podiatry consultations for further management of his toe infection. Otherwise continue rest of supportive care and treatment as he is on. Discussed with the patient and nurse regarding care plan. Plan discussed with: Patient, Other My Orders Orders - ELLIOTT MITCHELL MD Procedure Category Date Status Time Initiate Vte VAN 10/23/24 In Process Prophylaxis 00:22 Morphine Sulfate PHA 10/23/24 In Process Injection 11:30 Hydrocodone-Acet PHA 10/23/24 In Process 5/325mg Tab ([place] 11:30 Consistent DIET 10/23/24 Transmitted Carb(Ccho)Diabetes Lunch Problem List: (1) Diabetic foot ulcer associated with type 2 diabetes mellitus, with fat layer exposed (2) Gangrene of left foot (3) Hypertensive crisis (4) Acute urinary retention (5) Chest pain Date of Service: Oct 23, 2024 Billing Provider: ELLIOTT MITCHELL MD Common Visit Codes: [id number] INP/OBS CARE(MOD) ELLIOTT MITCHELL MD Oct 23, 2024 13:34
[2024-10-23] MEDS ORDERED: OXYCODONE W/ ACETAMINOPHEN 5/325MG TABLET PO PRN ×2 (13:45→17:15)
[2024-10-23] MEDS: OXYCODONE W/ ACETAMINOPHEN 5/325MG TABLET PO PRN (17:11)
[2024-10-23] MEDS: SENNA 8.6 MG TAB PO SCH (22:14)
[2024-10-24] VITALS (8 sets, daily range): BP systolic 132–143; BP diastolic 57–72; PULSE 74–99; RESP 16–22; TEMP 97.1–98.6; O2SAT 92–98
[2024-10-24 06:10] LABS: Hematocrit 46.2 % (41.0-53.0); Hemoglobin 15.1 g/dL (13.5-17.5); Mean Corpuscular Hemoglobin 26.8 pg (28.0-32.0); Mean Corpuscular Volume 82.0 fL (80.0-100.0); Nucleated Red Blood Cells % 0.0 %
[2024-10-24 06:32] LABS: Alanine Aminotransferase 29 U/L (7-40); Albumin 4.2 g/dL (3.2-4.8); Alkaline Phosphatase 82 U/L (46-116); Anion Gap 13 (5-15); BUN/Creatinine Ratio 27.5 (10.0-20.0); Carbon Dioxide 24 mmol/L (20-31); Chloride 106 mmol/L (98-107); Glucose 74 mg/dL (74-106); Sodium 143 mmol/L (136-145); Total Protein 6.8 g/dL (5.7-8.2)
[2024-10-24 06:33] LABS: Bilirubin, Total 0.5 mg/dL (0.2-1.0)
[2024-10-24 06:35] LABS: Blood Urea Nitrogen 25 mg/dL (9-23); Calcium 10.5 mg/dL (8.7-10.4); Potassium 3.5 mmol/L (3.5-5.1)
--- NOTE | 2024-10-24 08:54 | DVHINCON2 ---
Date Seen: Oct 24, [address] Garcia Reason for Consultation Peripheral vascular disease History of Present Illness 78-year-old gentleman comes in for urinary retention. He was found to have ischemia/necrosis of his distal right foot and toes. Peripheral vascular disease evaluation was requested. Patient has a previous history of stroke and has at inability to walk. He developed progressive urinary retention. And peripheral vascular disease was done discovered patient the patient has pain in his foot. He is unable to walk. His right leg is contracted. Past Medical History Medical history significant for hypertension diabetes mellitus. Patient is poor historian in complains of lot of pain pending son history of stroke which has been C describes left hemispheric aneurysm fact that his right lower extremity with contractures and inability to walk. Past Surgical History Questionable past medical history and past surgical history is not clear. Family History: FH: rheumatic heart disease G8 MOTHER Tetanus G8 MOTHER Social History Patient does have a history of previous smoking in the past. Allergies: Coded Allergies: Aspirin (Verified Allergy, Unknown, 07/14/23) Home Meds Active Scripts Rivaroxaban (Xarelto) 2.5 Mg Tab, 2.5 MG PO BID for 30 Days, #60 TAB 6 Refills Prov:OBREGONKATHRYN Downs Trisha DO 07/18/23 Nifedipine (Nifedipine Er) 30 Mg Tab, 90 MG PO DAILY for 30 Days, #90 TAB 6 Refills Prov:KATHRYN OBREGON DO 07/18/23 Metoprolol Tartrate (Lopressor) 25 Mg Tb, 25 MG PO BID for 30 Days, #60 TAB 6 Refills Prov:OBREGONKATHRYN Downs DO 07/18/23 Clopidogrel Bisulfate (CLOPIDOGREL) 75 Mg Tab, 75 MG PO DAILY for 30 Days, #30 TAB 6 Refills Prov:OBREGONKATHRYN Downs DO 07/18/23 Aspirin (Aspirin Low Dose) 81 Mg Tab, 81 MG PO DAILY for 30 Days, #30 TAB 6 Refills Prov:OBREGONKATHRYN Downs DO 07/18/23 Reported Medications Hydrochlorothiazide (Hydrochlorothiazide) 25 Mg Tab, 1 TAB PO DAILY 07/16/23 Verapamil Hcl (Verapamil Hcl Er) 240 Mg Cap, 1 CAP PO DAILY for HTN, #30 CAP 5 Refills 07/14/23 Atorvastatin Calcium (ATORVASTATIN CALCIUM) 40 Mg Tab, 1 TAB PO DAILY 07/14/23 Nifedipine (Nifedipine Er) 30 Mg Tab, 60 MG PO DAILY 07/14/23 Current Medications Current Medications Medications (Trade) Dose Ordered Sig/Sherlyn Route PRN Reason Start Time Stop Time Status Last Admin Ceftriaxone Sodium 50 ml @ 100 mls/hr DAILY@09 IV 10/23/24 09:00 10/23/24 09:00 Morphine Sulfate 2 mg Q4HPRN PRN IV SEVERE PAIN (7-10 PAIN SCALE) 10/23/24 11:30 10/24/24 05:49 Acetaminophen/ Hydrocodone Bitart ([place] 5/325MG Tab) 1 tab Q4HPRN PRN PO MODERATE PAIN (4-6 PAIN SCALE) 10/23/24 11:30 10/23/24 13:33 DC Oxycodone/ Acetaminophen (Percocet 5/ 325MG Tablet) 2 tab Q4HP PRN PO SEVERE PAIN (7-10 PAIN SCALE) 10/23/24 13:45 10/23/24 17:04 DC Sennosides (Senokot Tablet) 8.6 mg HS PO 10/23/24 22:00 10/23/24 22:14 Oxycodone/ Acetaminophen (Percocet 5/ 325MG Tablet) 2 tab Q4HP PRN PO MODERATE PAIN (4-6 PAIN SCALE) 10/23/24 17:15 10/23/24 17:07 DC Oxycodone/ Acetaminophen (Percocet 5/ 325MG Tablet) 2 tab Q4HP PRN PO MODERATE PAIN (4-6 PAIN SCALE) 10/23/24 17:15 10/23/24 22:15 Review of Systems Use review of systems constitutional standpoint is unclear. Use support his stone in. He does have a history of progressive weight loss. No recent history of fevers or chills. Cardiac and respiratory denies any significant symptomatology. GI hematological in oncological E negative. Dermatologically negative. Endocrinological with a noted history of diabetes mellitus. Musculoskeletal significant for previous stroke. Neurologically significant for stroke. Contracture of the right lower extremity. Peripheral vascular disease at he states was put in the last four days Vital Signs Vital Signs Date Time Temp Pulse Resp B/P (MAP) Pulse Ox O2 Delivery O2 Flow Rate FiO2 10/24/24 06:19 80 18 133/72 10/24/24 05:00 98.6 92 98.6 10/23/24 20:00 Room Air* 0 21 Physical Exam Patient is awake and responsive. He appears to be not clear on his past medical history and to the dates to which she has had much of his illnesses. Only he use while on hydralazine. There is no jugular distention. Lungs reveal good air entry. Heart exam reveals a regular S1-S2 soft S4. Abdominal examination is unremarkable. Extremities show contraction of the right leg. Diminished perfusion of the foot. Necrosis of the metatarsals distally including the toes. The left leg is extended with a managed pulses. Can not extend the right leg. He has pain and can not extend his left leg. Decreased perfusion of the right lower extremity. Neurologically with contractions of the right leg with a managed DTR's Labs/Diagnostic Data Labs Test 10/24/24 05:12 10/23/24 23:56 10/22/24 05:01 10/21/24 16:00 Range/Units White Blood Count 9.9 4.4-10.8 10^3/uL Red Blood Count 5.63 4.5-5.90 10^6/uL Hemoglobin 15.1 13.5-17.5 g/dL Hematocrit 46.2 41.0-53.0 % Mean Corpuscular Volume 82.0 80.0-100.0 fL Mean Corpuscular Hemoglobin 26.8 L 28.0-32.0 pg Mean Corpuscular Hemoglobin Concent 32.7 32.0-36.0 g/dL Red Cell Distribution Width 15.9 H 11.8-14.3 % Platelet Count 750 *H 140-450 10^3/uL Mean Platelet Volume 7.8 6.9-10.8 fL Neutrophils (%) (Auto) 75.5 37.0-80.0 % Lymphocytes (%) (Auto) 14.3 10.0-50.0 % Monocytes (%) (Auto) 8.6 0.0-12.0 % Eosinophils (%) (Auto) 1.0 0.0-7.0 % Basophils (%) (Auto) 0.6 0.0-2.0 % Neutrophils # (Auto) 7.5 1.6-8.6 10 ^3/uL Lymphocytes # (Auto) 1.4 0.4-5.4 10 ^3/uL Monocytes # (Auto) 0.9 0-1.3 10 ^3/uL Eosinophils # (Auto) 0.1 0-0.8 10 ^3/uL Basophils # (Auto) 0.1 0-0.2 10 ^3/uL Nucleated Red Blood Cells 0.0 % Sodium Level 143 136-145 mmol/L Potassium Level 3.5 3.5-5.1 mmol/L Chloride Level 106 98-107 mmol/L Carbon Dioxide Level 24 20-31 mmol/L Anion Gap 13 5-15 Blood Urea Nitrogen 25 H 9-23 mg/dL Creatinine 0.91 0.700-1.30 mg/dL Glomerular Filtration Rate Calc 86 >90 mL/min BUN/Creatinine Ratio 27.5 H 10.0-20.0 Serum Glucose 74 74-106 mg/dL Calcium Level 10.5 H 8.7-10.4 mg/dL Total Bilirubin 0.5 0.2-1.0 mg/dL Aspartate Amino Transferase (AST) 54 H 13-40 U/L Alanine Aminotransferase (ALT) 29 7-40 U/L Alkaline Phosphatase 82 46-116 U/L Total Protein 6.8 5.7-8.2 g/dL Albumin 4.2 3.2-4.8 g/dL POC Glucose 172 H 70-106 mg/dl Platelet Estimate Markedly increased Large Platelets Few Giant Platelets Few Poikilocytosis (manual) Slight Anisocytosis (manual) Slight Tear Drop Cells Few [place] Cells Few Hemoglobin A1c 6.5 H <5.7 % A1C Hepatitis B Surface Antigen Negative Negative Hepatitis C Antibody Negative Negative Urine Color Light-yellow Yellow Urine Clarity Clear Clear Urine pH 5.5 5.0-9.0 Urine Specific [place] 1.008 1.001-1.035 Urine Protein Negative Negative Urine Ketones Negative Negative Urine Blood 1+ H Negative /uL Urine Nitrite Negative Negative Urine Bilirubin Negative Negative Urine Urobilinogen Normal Negative mg/dL Urine Leukocyte Esterase Negative Negative /uL Urine RBC 17 0 - 3 /hpf Urine Microscopic WBC 1 0-3 /HPF Urine Squamous Epithelial Cells None seen <5 /hpf Urine Bacteria None seen None Seen /hpf Urine Glucose Normal Normal mg/dL Test 10/21/24 15:52 Range/Units Microcytosis Slight Macrocytosis Slight Ovalocytes Few Lactic Acid Level 1.4 0.4-2.0 mmol/L C-Reactive Protein High Sensitivity 0.93 <1.0 mg/dL Assessment Significant peripheral vascular disease with a association with occlusion of the right superficial femoral artery distally according to the ultrasound. Contracture of the right lower extremity. Previous stroke. Diabetes mellitus. Appears not to be uncontrolled. History of previous smoking. Hypertension. No history of chest pain to suggest active coronary artery disease. Plan/Recommendation It seems unlikely that this patient will tolerate and angiographic evaluation. This can not be performed while patient has a contracture of the right lower extremity. It does not appear that revascularization of the right lower extremity would be helpful given his inability to walk given his peripheral vascular disease previous stroke and contractures of the right lower extremity. Would recommend out the PD cannula podiatry evaluation to consider amputation of the right distal foot. Continuation of medical management and conservative management given his overall condition at this time. Plan discussed with: Patient (Time 2s might contact his daughter who apparently lives in [place] at [phone]) NYHA Physical activity limitations: Class4(Severe)discomfort Date of Service: Oct 24, 2024 Billing Provider: ENRIQUE WOODRUFF Sr., MD Cardiology Common Codes: [id number] INP/OBS CARE (High) ENRIQUE WOODRUFF Sr., MD Oct 24, 2024 08:54
--- NOTE | 2024-10-24 12:24 | DVHINCON2 ---
Date Seen: Oct 24, 2024 Past Medical History See H&P Past Surgical History See H&P Family History: FH: rheumatic heart disease G8 MOTHER Tetanus G8 MOTHER Allergies: Coded Allergies: Aspirin (Verified Allergy, Unknown, 07/14/23) Home Meds Active Scripts Rivaroxaban (Xarelto) 2.5 Mg Tab, 2.5 MG PO BID for 30 Days, #60 TAB 6 Refills Prov:OBREGONKATHRYN Downs DO 07/18/23 Nifedipine (Nifedipine Er) 30 Mg Tab, 90 MG PO DAILY for 30 Days, #90 TAB 6 Refills Prov:OBREGONKATHRYN Downs DO 07/18/23 Metoprolol Tartrate (Lopressor) 25 Mg Tb, 25 MG PO BID for 30 Days, #60 TAB 6 Refills Prov:OBREGONKATHRYN Downs DO 07/18/23 Clopidogrel Bisulfate (CLOPIDOGREL) 75 Mg Tab, 75 MG PO DAILY for 30 Days, #30 TAB 6 Refills Prov:OBREGONKATHRYN Downs DO 07/18/23 Aspirin (Aspirin Low Dose) 81 Mg Tab, 81 MG PO DAILY for 30 Days, #30 TAB 6 Refills Prov:KATHRYN OBREGON DO 07/18/23 Reported Medications Hydrochlorothiazide (Hydrochlorothiazide) 25 Mg Tab, 1 TAB PO DAILY 07/16/23 Verapamil Hcl (Verapamil Hcl Er) 240 Mg Cap, 1 CAP PO DAILY for HTN, #30 CAP 5 Refills 07/14/23 Atorvastatin Calcium (ATORVASTATIN CALCIUM) 40 Mg Tab, 1 TAB PO DAILY 07/14/23 Nifedipine (Nifedipine Er) 30 Mg Tab, 60 MG PO DAILY 07/14/23 Current Medications Current Medications Medications (Trade) Dose Ordered Sig/Sherlyn Route PRN Reason Start Time Stop Time Status Last Admin Oxycodone/ Acetaminophen (Percocet 5/ 325MG Tablet) 2 tab Q4HP PRN PO SEVERE PAIN (7-10 PAIN SCALE) 10/23/24 13:45 10/23/24 17:04 DC Sennosides (Senokot Tablet) 8.6 mg HS PO 10/23/24 22:00 10/23/24 22:14 Oxycodone/ Acetaminophen (Percocet 5/ 325MG Tablet) 2 tab Q4HP PRN PO MODERATE PAIN (4-6 PAIN SCALE) 10/23/24 17:15 10/23/24 17:07 DC Oxycodone/ Acetaminophen (Percocet 5/ 325MG Tablet) 2 tab Q4HP PRN PO MODERATE PAIN (4-6 PAIN SCALE) 10/23/24 17:15 10/23/24 22:15 Vital Signs Vital Signs Date Time Temp Pulse Resp B/P (MAP) Pulse Ox O2 Delivery O2 Flow Rate FiO2 10/24/24 10:26 99 16 139/64 10/24/24 08:45 97.1 93 97.1 10/24/24 08:00 Room Air* 0 21 Physical Exam Dermatological: Skin is dry with mild erythema and some maceration around the wound site No gross deformities noted Mild non-pitting edema present bilaterally 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 Strength is 5/5 in all tested muscle groups. Gait is antalgic due to offloading of the affected limb. Labs/Diagnostic Data Labs Test 10/24/24 11:59 10/24/24 05:12 10/22/24 05:01 10/21/24 16:00 Range/Units POC Glucose 146 H 70-106 mg/dl White Blood Count 9.9 4.4-10.8 10^3/uL Red Blood Count 5.63 4.5-5.90 10^6/uL Hemoglobin 15.1 13.5-17.5 g/dL Hematocrit 46.2 41.0-53.0 % Mean Corpuscular Volume 82.0 80.0-100.0 fL Mean Corpuscular Hemoglobin 26.8 L 28.0-32.0 pg Mean Corpuscular Hemoglobin Concent 32.7 32.0-36.0 g/dL Red Cell Distribution Width 15.9 H 11.8-14.3 % Platelet Count 750 *H 140-450 10^3/uL Mean Platelet Volume 7.8 6.9-10.8 fL Neutrophils (%) (Auto) 75.5 37.0-80.0 % Lymphocytes (%) (Auto) 14.3 10.0-50.0 % Monocytes (%) (Auto) 8.6 0.0-12.0 % Eosinophils (%) (Auto) 1.0 0.0-7.0 % Basophils (%) (Auto) 0.6 0.0-2.0 % Neutrophils # (Auto) 7.5 1.6-8.6 10 ^3/uL Lymphocytes # (Auto) 1.4 0.4-5.4 10 ^3/uL Monocytes # (Auto) 0.9 0-1.3 10 ^3/uL Eosinophils # (Auto) 0.1 0-0.8 10 ^3/uL Basophils # (Auto) 0.1 0-0.2 10 ^3/uL Nucleated Red Blood Cells 0.0 % Sodium Level 143 136-145 mmol/L Potassium Level 3.5 3.5-5.1 mmol/L Chloride Level 106 98-107 mmol/L Carbon Dioxide Level 24 20-31 mmol/L Anion Gap 13 5-15 Blood Urea Nitrogen 25 H 9-23 mg/dL Creatinine 0.91 0.700-1.30 mg/dL Glomerular Filtration Rate Calc 86 >90 mL/min BUN/Creatinine Ratio 27.5 H 10.0-20.0 Serum Glucose 74 74-106 mg/dL Calcium Level 10.5 H 8.7-10.4 mg/dL Total Bilirubin 0.5 0.2-1.0 mg/dL Aspartate Amino Transferase (AST) 54 H 13-40 U/L Alanine Aminotransferase (ALT) 29 7-40 U/L Alkaline Phosphatase 82 46-116 U/L Total Protein 6.8 5.7-8.2 g/dL Albumin 4.2 3.2-4.8 g/dL Platelet Estimate Markedly increased Large Platelets Few Giant Platelets Few Poikilocytosis (manual) Slight Anisocytosis (manual) Slight Tear Drop Cells Few [place] Cells Few Hemoglobin A1c 6.5 H <5.7 % A1C Hepatitis B Surface Antigen Negative Negative Hepatitis C Antibody Negative Negative Urine Color Light-yellow Yellow Urine Clarity Clear Clear Urine pH 5.5 5.0-9.0 Urine Specific [place] 1.008 1.001-1.035 Urine Protein Negative Negative Urine Ketones Negative Negative Urine Blood 1+ H Negative /uL Urine Nitrite Negative Negative Urine Bilirubin Negative Negative Urine Urobilinogen Normal Negative mg/dL Urine Leukocyte Esterase Negative Negative /uL Urine RBC 17 0 - 3 /hpf Urine Microscopic WBC 1 0-3 /HPF Urine Squamous Epithelial Cells None seen <5 /hpf Urine Bacteria None seen None Seen /hpf Urine Glucose Normal Normal mg/dL Test 10/21/24 15:52 Range/Units Microcytosis Slight Macrocytosis Slight Ovalocytes Few Lactic Acid Level 1.4 0.4-2.0 mmol/L C-Reactive Protein High Sensitivity 0.93 <1.0 mg/dL Problems(with codes): (1) Diabetic foot ulcer associated with type 2 diabetes mellitus, with fat layer exposed (2) Gangrene of left foot (3) Hypertensive crisis (4) Acute urinary retention (5) Chest pain Plan/Recommendation ASSESSMENT: Patient is a 78 year old seen on the floor for a worsening ulcer PLAN: - The patients chart was reviewed, clinical findings were discussed with the patient, the etiologies of the conditions were discussed in detail, and a treatment plan was agreed to at this time, with both oral and written instructions provided. - reviewed advanced imaging - discussed with the patient that due to inability to get angio it is difficult to know if amputation would heal - patient does not want to get an amputation of the 3rd toe - keep dry with Betadine - can follow up with me as an outpatient All questions were answered and concerns addressed to the patient's satisfaction. The patient was given the phone number to the clinic and was told how to make contact with the clinic should any concerns or questions arise. Patient understands that if any questions or concerns arise prior to the next appointment, we should be contacted immediately. FOLLOW-UP: Continue to follow while inpatient Plan discussed with: Patient Date of Service: Oct 24, 2024 Billing Provider: SILVANO BRIDGES DPM Common Visit Codes: CONSULT ONLY Consultation Codes: [id number] CONSULT <80MIN SILVANO BRIDGES DPM Oct 24, 2024 12:24
--- NOTE | 2024-10-24 12:52 | DVHPN2 ---
Subjective Patient's remains clinically stable. 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 Waiting for Podiatry consultation and recommendation Changes from previous H/P or p: No Changes Objective Vitals Vital Signs Date Time Temp Pulse Resp B/P (MAP) Pulse Ox O2 Delivery O2 Flow Rate FiO2 10/24/24 10:26 99 16 139/64 10/24/24 08:45 97.1 93 97.1 10/24/24 08:00 Room Air* 0 21 Intake/Output Intake and Output 10/24/24 07:00 Intake Total 1050 ml Output Total 800 ml Balance 250 ml Intake Oral 1000 ml IV Total 50 ml Output Urine Total 800 ml Exam Comfortable in bed. No complaints. Asking when he can go home. Heart regular rate and rhythm S1-S2. Lungs without rales wheezes. Abdomen soft positive bowel sounds. Extremities no edema positive pulses with contractures noted in his lower extremities as well as muscle wasting. Medications Current Medications Medications Dose Ordered Sig/Sherlyn Route Start Time Stop Time Status Last Admin Dose Admin Tamsulosin HCl 0.4 mg DAILY PO 10/21/24 19:45 10/24/24 10:24 0.4 MG Sodium Chloride 10 ml Q8HR IV 10/21/24 22:00 10/24/24 05:50 10 ML Acetaminophen 650 mg Q6HP PRN PO 10/21/24 19:45 10/21/24 20:30 650 MG Ondansetron HCl 4 mg Q4HP PRN IV 10/21/24 19:45 Clopidogrel Bisulfate 75 mg DAILY PO 10/22/24 10:00 10/24/24 10:24 75 MG Metoprolol Tartrate 25 mg BID PO 10/21/24 22:00 10/24/24 10:25 25 MG Atorvastatin Calcium 40 mg DAILY PO 10/22/24 10:00 10/24/24 10:24 40 MG Rivaroxaban 2.5 mg BID PO 10/21/24 22:00 10/24/24 10:24 2.5 MG Diagnostic Test (Pha) 1 strip Q6HR 10/22/24 18:00 10/24/24 12:15 1 STRIP Insulin Human Regular Q6HR SC 10/22/24 18:00 10/24/24 00:01 3 UNITS Dextrose 50 ml UD PRN IV 10/22/24 12:15 Ceftriaxone Sodium 50 ml @ 100 mls/hr DAILY@09 IV 10/23/24 09:00 10/24/24 10:24 100 MLS/HR Nifedipine 60 mg BID PO 10/22/24 22:00 10/24/24 10:25 60 MG Hydralazine HCl 25 mg Q8HR PO 10/22/24 14:00 10/24/24 05:49 25 MG Methocarbamol 500 mg TID PO 10/22/24 14:00 10/24/24 05:48 500 MG Morphine Sulfate 2 mg Q4HPRN PRN IV 10/23/24 11:30 10/24/24 10:26 2 MG Sennosides 8.6 mg HS PO 10/23/24 22:00 10/23/24 22:14 8.6 MG Oxycodone/ Acetaminophen 2 tab Q4HP PRN PO 10/23/24 17:15 10/23/24 22:15 2 TAB Laboratory Results Laboratory Tests 10/24/24 05:12 Chemistry Test 10/24/24 05:12 Albumin 4.2 g/dL (3.2-4.8) Calcium Level 10.5 mg/dL (8.7-10.4) H Total Protein 6.8 g/dL (5.7-8.2) LFT Test 10/24/24 05:12 Alanine Aminotransferase (ALT) 29 U/L (7-40) Alkaline Phosphatase 82 U/L (46-116) Aspartate Amino Transferase (AST) 54 U/L (13-40) H Total Bilirubin 0.5 mg/dL (0.2-1.0) Urinalysis Test 10/21/24 16:00 Urine Color Light-yellow (Yellow) Urine Clarity Clear (Clear) Urine pH 5.5 (5.0-9.0) Urine Specific [place] 1.008 (1.001-1.035) Urine Protein Negative (Negative) Urine Ketones Negative (Negative) Urine Blood 1+ /uL (Negative) H Urine Nitrite Negative (Negative) Urine Bilirubin Negative (Negative) Urine Urobilinogen Normal mg/dL (Negative) Urine Leukocyte Esterase Negative /uL (Negative) Urine RBC 17 /hpf (0 - 3) Urine Microscopic WBC 1 /HPF (0-3) Urine Squamous Epithelial Cells None seen /hpf (<5) Urine Bacteria None seen /hpf (None Seen) Urine Glucose Normal mg/dL (Normal) Assessment/Plan Assessment/Plan Currently he is clinically stable. Continue current antiplatelet therapy for peripheral arterial disease. Continue current antibiotics for his toe infection. Further management and discharge planning for recommendations from the business office technology instructor. Discussed with the patient and nurse regarding care plan. Plan discussed with: Patient, Other My Orders Orders - ELLIOTT MITCHELL MD Procedure Category Date Status Time Senna Pod Tablet PHA 10/23/24 In Process (Senokot Tablet) 22:00 Oxycodone W/ Acet PHA 10/23/24 In Process 5/325mg Tab (Percocet 17:15 Date of Service: Oct 24, 2024 Billing Provider: ELLIOTT MITCHELL MD Common Visit Codes: [id number] INP/OBS CARE(MOD) ELLIOTT MITCHELL MD Oct 24, 2024 12:52
[2024-10-25] VITALS (7 sets, daily range): BP systolic 125–175; BP diastolic 58–91; PULSE 73–99; RESP 18–20; TEMP 97.8–101.1; O2SAT 94–98
[2024-10-25 06:07] LABS: Hematocrit 45.7 % (41.0-53.0); Hemoglobin 15.0 g/dL (13.5-17.5); Mean Corpuscular Hemoglobin 26.9 pg (28.0-32.0); Mean Corpuscular Volume 81.9 fL (80.0-100.0); Nucleated Red Blood Cells % 0.0 %
[2024-10-25 06:21] LABS: Giant Platelets Few
[2024-10-25 06:28] LABS: Alanine Aminotransferase 32 U/L (7-40); Albumin 4.1 g/dL (3.2-4.8); Alkaline Phosphatase 86 U/L (46-116); Anion Gap 8 (5-15); BUN/Creatinine Ratio 19.6 (10.0-20.0); Bilirubin, Total 0.5 mg/dL (0.2-1.0); Blood Urea Nitrogen 20 mg/dL (9-23); Calcium 10.1 mg/dL (8.7-10.4); Carbon Dioxide 26 mmol/L (20-31); Chloride 107 mmol/L (98-107); Potassium 3.6 mmol/L (3.5-5.1); Sodium 141 mmol/L (136-145); Total Protein 6.8 g/dL (5.7-8.2)
[2024-10-25 06:29] LABS: Glucose 183 mg/dL (74-106)
--- NOTE | 2024-10-25 07:31 | ECG ---
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
--- NOTE | 2024-10-25 12:19 | DVHPN2 ---
Subjective Doing well in bed Reviewed: H&P, Labs Changes from previous H/P or p: No Changes Objective Vitals Vital Signs Date Time Temp Pulse Resp B/P (MAP) Pulse Ox O2 Delivery O2 Flow Rate FiO2 10/25/24 11:07 85 157/86 10/25/24 10:34 18 10/25/24 08:05 Room Air* 0 21 10/25/24 05:00 98.0 98 98.0 Intake/Output Intake and Output 10/25/24 07:00 Intake Total 1500 ml Output Total 775 ml Balance 725 ml Intake Oral 1450 ml IV Total 50 ml Output Urine Total 775 ml General Appearance: Alert, Oriented X3 HEENT: Atraumatic Cardiovascular: Regular rate, Normal S1, Normal S2 Abdomen: Normal bowel sounds Extremities: Other (right leg contracted) Medications Current Medications Medications Dose Ordered Sig/Sherlyn Route Start Time Stop Time Status Last Admin Dose Admin Tamsulosin HCl 0.4 mg DAILY PO 10/21/24 19:45 10/25/24 10:07 0.4 MG Sodium Chloride 10 ml Q8HR IV 10/21/24 22:00 10/25/24 05:23 10 ML Acetaminophen 650 mg Q6HP PRN PO 10/21/24 19:45 10/21/24 20:30 650 MG Ondansetron HCl 4 mg Q4HP PRN IV 10/21/24 19:45 Clopidogrel Bisulfate 75 mg DAILY PO 10/22/24 10:00 10/25/24 10:08 75 MG Metoprolol Tartrate 25 mg BID PO 10/21/24 22:00 10/25/24 10:07 25 MG Atorvastatin Calcium 40 mg DAILY PO 10/22/24 10:00 10/25/24 10:07 40 MG Rivaroxaban 2.5 mg BID PO 10/21/24 22:00 10/25/24 10:51 2.5 MG Diagnostic Test (Pha) 1 strip Q6HR 10/22/24 18:00 10/25/24 11:46 1 STRIP Insulin Human Regular Q6HR SC 10/22/24 18:00 10/25/24 11:54 2 UNITS Dextrose 50 ml UD PRN IV 10/22/24 12:15 Ceftriaxone Sodium 50 ml @ 100 mls/hr DAILY@09 IV 10/23/24 09:00 10/25/24 10:11 100 MLS/HR Nifedipine 60 mg BID PO 10/22/24 22:00 10/25/24 10:08 60 MG Hydralazine HCl 25 mg Q8HR PO 10/22/24 14:00 10/25/24 05:24 25 MG Methocarbamol 500 mg TID PO 10/22/24 14:00 10/25/24 05:24 500 MG Morphine Sulfate 2 mg Q4HPRN PRN IV 10/23/24 11:30 10/25/24 10:04 2 MG Sennosides 8.6 mg HS PO 10/23/24 22:00 10/24/24 21:30 8.6 MG Oxycodone/ Acetaminophen 2 tab Q4HP PRN PO 10/23/24 17:15 10/25/24 11:56 2 TAB Laboratory Results Laboratory Tests 10/25/24 05:16 Chemistry Test 10/25/24 05:16 Albumin 4.1 g/dL (3.2-4.8) Calcium Level 10.1 mg/dL (8.7-10.4) Total Protein 6.8 g/dL (5.7-8.2) LFT Test 10/25/24 05:16 Alanine Aminotransferase (ALT) 32 U/L (7-40) Alkaline Phosphatase 86 U/L (46-116) Aspartate Amino Transferase (AST) 52 U/L (13-40) H Total Bilirubin 0.5 mg/dL (0.2-1.0) Urinalysis Test 10/21/24 16:00 Urine Color Light-yellow (Yellow) Urine Clarity Clear (Clear) Urine pH 5.5 (5.0-9.0) Urine Specific [place] 1.008 (1.001-1.035) Urine Protein Negative (Negative) Urine Ketones Negative (Negative) Urine Blood 1+ /uL (Negative) H Urine Nitrite Negative (Negative) Urine Bilirubin Negative (Negative) Urine Urobilinogen Normal mg/dL (Negative) Urine Leukocyte Esterase Negative /uL (Negative) Urine RBC 17 /hpf (0 - 3) Urine Microscopic WBC 1 /HPF (0-3) Urine Squamous Epithelial Cells None seen /hpf (<5) Urine Bacteria None seen /hpf (None Seen) Urine Glucose Normal mg/dL (Normal) Assessment/Plan Assessment/Plan Acute bladder retention History of CVA right foot gangrene Podiatry signed off and will follow as outpatient not amenable for revascularization due to right leg being contracted Continue IV abx Dispo: Needs placement vs home arrangements Plan discussed with: Patient Date of Service: Oct 25, 2024 Billing Provider: FINN LEMA MD Common Visit Codes: [id number] INP/OBS CARE(HIGH) FINN LEMA MD Oct 25, 2024 12:19
[2024-10-25] MEDS: DOCUSATE SOD 100 MG CAP PO SCH (17:12)
[2024-10-26] VITALS (8 sets, daily range): BP systolic 95–177; BP diastolic 50–84; PULSE 84–99; RESP 18–24; TEMP 99–101.9; O2SAT 91–97
[2024-10-26 06:01] LABS: Hematocrit 44.3 % (41.0-53.0); Hemoglobin 14.4 g/dL (13.5-17.5); Mean Corpuscular Hemoglobin 26.7 pg (28.0-32.0); Mean Corpuscular Volume 82.0 fL (80.0-100.0); Nucleated Red Blood Cells % 0.1 %
[2024-10-26 06:17] LABS: Alanine Aminotransferase 34 U/L (7-40); Albumin 4.2 g/dL (3.2-4.8); Alkaline Phosphatase 82 U/L (46-116); Anion Gap 8 (5-15); BUN/Creatinine Ratio 17.0 (10.0-20.0); Blood Urea Nitrogen 15 mg/dL (9-23); Calcium 10.0 mg/dL (8.7-10.4); Carbon Dioxide 25 mmol/L (20-31); Potassium 3.5 mmol/L (3.5-5.1); Sodium 140 mmol/L (136-145); Total Protein 6.8 g/dL (5.7-8.2)
[2024-10-26 06:18] LABS: Bilirubin, Total 0.4 mg/dL (0.2-1.0); Chloride 107 mmol/L (98-107); Glucose 167 mg/dL (74-106)
--- NOTE | 2024-10-26 10:40 | DVHSR ---
APPROVED REPORT EXAM: Two-dimensional and M-mode echocardiogram with Doppler and color Doppler. Blood Pressure: 179/90 mmHg INDICATION CAD RISK FACTORS Height: 5'6", Weight: 136 DIMENSIONS LVDd3.6 (3.8-5.7cm)LA (2D)3.5 (1.9-4.0cm)Aortic Root3.5 (2.0-3.7cm) LVDs2.4 (2.5-4.0cm)LA (MM) (1.9-4.0cm)Aortic Cusp Exc1.1 (1.5-2.0cm) EF (%) 65.0 (55-70%)Rt. Atrium3.9 (1.9-4.0cm)Asc. Aorta cm IVSd1.5 (0.7-1.1cm)RV (D) (1.8-2.4cm) PWd1.3 (0.7-1.1cm) Mitral Valve MitralMitral Stenosis E wave0.82m/sMV Mean GR.mmHg A wave1.66m/sMV Peak GR.mmHg E/A ratio0.52D MVAcm2 DECEL [id number] 1/2 Timems Aortic Valve Aortic ValveAortic Stenosis V12.20m/Dov Mean GR.10mmHg V22.28m/Dov Peak GR.21mmHg LVOT Diameter1.7 (1.8-2.4cm)Doppler AVA2.19cm2 Other Information Quality : Technically LimitedRhythm : Technically limited study due to body habitus, patient uncooperative, lying on right side refusing t o lay flat or turn to left side. Conclusion Technically good study. Difficult acoustic windows. Concentric LVH. Mild left atrial enlargement. Aortic root enlargement. Moderate mitral annular calcification at the base of the posterior mitral leaflet. Mild aortic scler osis. Left ventricular function is hypercontractile. EF of 65-70% with normal RV function. Mild TR. No pericardial effusion masses or vegetations.
--- NOTE | 2024-10-26 23:34 | DVHPN2 ---
Subjective Doing well in bed Reviewed: H&P, Labs Changes from previous H/P or p: No Changes Objective Vitals Vital Signs Date Time Temp Pulse Resp B/P (MAP) Pulse Ox O2 Delivery O2 Flow Rate FiO2 10/26/24 21:54 170/71 10/26/24 21:51 99 10/26/24 21:00 99.4 24 96 99.4 10/26/24 08:30 Room Air* 0 21 Intake/Output Intake and Output 10/26/24 07:00 Intake Total 1430 ml Output Total 1150 ml Balance 280 ml Intake Oral 1380 ml IV Total 50 ml Output Urine Total 1150 ml General Appearance: Alert, Oriented X3 HEENT: Atraumatic Cardiovascular: Regular rate, Normal S1, Normal S2 Abdomen: Normal bowel sounds Extremities: Other (right leg contracted) Medications Current Medications Medications Dose Ordered Sig/Sherlyn Route Start Time Stop Time Status Last Admin Dose Admin Tamsulosin HCl 0.4 mg DAILY PO 10/21/24 19:45 10/26/24 09:51 0.4 MG Sodium Chloride 10 ml Q8HR IV 10/21/24 22:00 10/26/24 11:20 10 ML Acetaminophen 650 mg Q6HP PRN PO 10/21/24 19:45 10/21/24 20:30 650 MG Ondansetron HCl 4 mg Q4HP PRN IV 10/21/24 19:45 Clopidogrel Bisulfate 75 mg DAILY PO 10/22/24 10:00 10/26/24 09:52 75 MG Metoprolol Tartrate 25 mg BID PO 10/21/24 22:00 10/26/24 21:51 25 MG Atorvastatin Calcium 40 mg DAILY PO 10/22/24 10:00 10/26/24 09:51 40 MG Rivaroxaban 2.5 mg BID PO 10/21/24 22:00 10/26/24 22:00 2.5 MG Diagnostic Test (Pha) 1 strip Q6HR 10/22/24 18:00 10/26/24 17:31 1 STRIP Insulin Human Regular Q6HR SC 10/22/24 18:00 10/26/24 17:33 2 UNITS Dextrose 50 ml UD PRN IV 10/22/24 12:15 Ceftriaxone Sodium 50 ml @ 100 mls/hr DAILY@09 IV 10/23/24 09:00 10/26/24 09:52 100 MLS/HR Nifedipine 60 mg BID PO 10/22/24 22:00 10/26/24 21:54 60 MG Hydralazine HCl 25 mg Q8HR PO 10/22/24 14:00 10/26/24 21:52 25 MG Methocarbamol 500 mg TID PO 10/22/24 14:00 10/26/24 21:50 500 MG Morphine Sulfate 2 mg Q4HPRN PRN IV 10/23/24 11:30 10/26/24 14:21 2 MG Sennosides 8.6 mg HS PO 10/23/24 22:00 10/26/24 21:49 8.6 MG Oxycodone/ Acetaminophen 2 tab Q4HP PRN PO 10/23/24 17:15 10/25/24 11:56 2 TAB Docusate Sodium 100 mg BIDD PO 10/25/24 18:00 10/26/24 17:31 100 MG Laboratory Results Laboratory Tests 10/26/24 05:28 Chemistry Test 10/26/24 05:28 Albumin 4.2 g/dL (3.2-4.8) Calcium Level 10.0 mg/dL (8.7-10.4) Total Protein 6.8 g/dL (5.7-8.2) LFT Test 10/26/24 05:28 Alanine Aminotransferase (ALT) 34 U/L (7-40) Alkaline Phosphatase 82 U/L (46-116) Aspartate Amino Transferase (AST) 50 U/L (13-40) H Total Bilirubin 0.4 mg/dL (0.2-1.0) Urinalysis Test 10/21/24 16:00 Urine Color Light-yellow (Yellow) Urine Clarity Clear (Clear) Urine pH 5.5 (5.0-9.0) Urine Specific [place] 1.008 (1.001-1.035) Urine Protein Negative (Negative) Urine Ketones Negative (Negative) Urine Blood 1+ /uL (Negative) H Urine Nitrite Negative (Negative) Urine Bilirubin Negative (Negative) Urine Urobilinogen Normal mg/dL (Negative) Urine Leukocyte Esterase Negative /uL (Negative) Urine RBC 17 /hpf (0 - 3) Urine Microscopic WBC 1 /HPF (0-3) Urine Squamous Epithelial Cells None seen /hpf (<5) Urine Bacteria None seen /hpf (None Seen) Urine Glucose Normal mg/dL (Normal) Assessment/Plan Assessment/Plan Acute bladder retention History of CVA right foot gangrene Podiatry signed off and will follow as outpatient not amenable for revascularization due to right leg being contracted Continue IV abx Dispo: Needs placement vs home arrangements Plan discussed with: Patient Date of Service: Oct 26, 2024 Billing Provider: FINN LEMA MD Common Visit Codes: [id number] INP/OBS CARE(HIGH) FINN LEMA MD Oct 26, 2024 23:34
[2024-10-27 01:00] VITALS: BP 170/71; PULSE 84; RESP 24; TEMP 100; O2SAT 98
[2024-10-27 05:00] VITALS: BP 161/71; PULSE 83; RESP 22; TEMP 98.9; O2SAT 97
[2024-10-27 08:35] VITALS: BP 158/68; PULSE 82; RESP 17; TEMP 98.7; O2SAT 96
[2024-10-27] MEDS ORDERED: PERCOT PO (12:36)
[2024-10-27] MEDS ORDERED: SENN-105 PO (12:36)
[2024-10-27 13:00] VITALS: BP 104/59; PULSE 79; RESP 16; TEMP 99.4; O2SAT 95
[2024-10-27 21:00] VITALS: BP 162/78; PULSE 87; RESP 19; TEMP 98.1; O2SAT 97
--- NOTE | 2024-10-27 21:37 | DVHPN2 ---
Subjective Doing well in bed Reviewed: H&P, Labs Changes from previous H/P or p: No Changes Objective Vitals Vital Signs Date Time Temp Pulse Resp B/P (MAP) Pulse Ox O2 Delivery O2 Flow Rate FiO2 10/27/24 21:21 162/78 10/27/24 21:17 87 10/27/24 18:22 18 10/27/24 13:00 99.4 95 99.4 10/27/24 08:14 Room Air* 0 21 Intake/Output Intake and Output 10/27/24 07:00 Intake Total 1030 ml Output Total 1100 ml Balance -70 ml Intake Oral 1030 ml Output Urine Total 1100 ml General Appearance: Alert, Oriented X3 HEENT: Atraumatic Cardiovascular: Regular rate, Normal S1, Normal S2 Abdomen: Normal bowel sounds Extremities: Other (right leg contracted) Medications Current Medications Medications Dose Ordered Sig/Sherlyn Route Start Time Stop Time Status Last Admin Dose Admin Tamsulosin HCl 0.4 mg DAILY PO 10/21/24 19:45 10/27/24 09:06 0.4 MG Sodium Chloride 10 ml Q8HR IV 10/21/24 22:00 10/27/24 21:21 10 ML Acetaminophen 650 mg Q6HP PRN PO 10/21/24 19:45 10/21/24 20:30 650 MG Ondansetron HCl 4 mg Q4HP PRN IV 10/21/24 19:45 Clopidogrel Bisulfate 75 mg DAILY PO 10/22/24 10:00 10/27/24 09:06 75 MG Metoprolol Tartrate 25 mg BID PO 10/21/24 22:00 10/27/24 21:17 25 MG Atorvastatin Calcium 40 mg DAILY PO 10/22/24 10:00 10/27/24 09:07 40 MG Rivaroxaban 2.5 mg BID PO 10/21/24 22:00 10/27/24 21:17 2.5 MG Diagnostic Test (Pha) 1 strip Q6HR 10/22/24 18:00 10/27/24 12:09 1 STRIP Insulin Human Regular Q6HR SC 10/22/24 18:00 10/27/24 12:08 2 UNITS Dextrose 50 ml UD PRN IV 10/22/24 12:15 Ceftriaxone Sodium 50 ml @ 100 mls/hr DAILY@09 IV 10/23/24 09:00 10/27/24 09:08 100 MLS/HR Nifedipine 60 mg BID PO 10/22/24 22:00 10/27/24 21:21 60 MG Hydralazine HCl 25 mg Q8HR PO 10/22/24 14:00 10/27/24 21:17 25 MG Methocarbamol 500 mg TID PO 10/22/24 14:00 10/27/24 21:17 500 MG Morphine Sulfate 2 mg Q4HPRN PRN IV 10/23/24 11:30 10/27/24 18:22 2 MG Sennosides 8.6 mg HS PO 10/23/24 22:00 10/27/24 21:18 8.6 MG Oxycodone/ Acetaminophen 2 tab Q4HP PRN PO 10/23/24 17:15 10/25/24 11:56 2 TAB Docusate Sodium 100 mg BIDD PO 10/25/24 18:00 10/27/24 18:21 100 MG Laboratory Results Laboratory Tests 10/26/24 05:28 Urinalysis Test 10/21/24 16:00 Urine Color Light-yellow (Yellow) Urine Clarity Clear (Clear) Urine pH 5.5 (5.0-9.0) Urine Specific [place] 1.008 (1.001-1.035) Urine Protein Negative (Negative) Urine Ketones Negative (Negative) Urine Blood 1+ /uL (Negative) H Urine Nitrite Negative (Negative) Urine Bilirubin Negative (Negative) Urine Urobilinogen Normal mg/dL (Negative) Urine Leukocyte Esterase Negative /uL (Negative) Urine RBC 17 /hpf (0 - 3) Urine Microscopic WBC 1 /HPF (0-3) Urine Squamous Epithelial Cells None seen /hpf (<5) Urine Bacteria None seen /hpf (None Seen) Urine Glucose Normal mg/dL (Normal) Assessment/Plan Assessment/Plan Acute bladder retention History of CVA right foot gangrene Podiatry signed off and will follow as outpatient not amenable for revascularization due to right leg being contracted Continue IV abx Dispo: Needs placement vs home arrangements Plan discussed with: Patient My Orders Orders - FINN LEMA MD Procedure Category Date Status Time Discharge DISCHARGE 10/27/24 Transmitted 12:37 * Light Adjuster CONS 10/27/24 Transmitted Consult Date of Service: Oct 27, 2024 Billing Provider: FINN LEMA MD Common Visit Codes: [id number] INP/OBS CARE(HIGH) FINN LEMA MD Oct 27, 2024 21:36
[2024-10-28 01:00] VITALS: BP 152/73; PULSE 71; RESP 19; TEMP 97.9; O2SAT 95
[2024-10-28 05:00] VITALS: BP 122/82; PULSE 77; RESP 17; TEMP 97.6; O2SAT 97
[2024-10-28 09:00] VITALS: BP 149/77; PULSE 78; RESP 20; TEMP 97.5; O2SAT 93
[2024-10-28] MEDS: LACTULOSE 20Gm/30ML SOLN PO PRN (13:06)
[2024-10-28 13:16] VITALS: BP 138/74; PULSE 75; RESP 18; TEMP 97.8; O2SAT 94
--- NOTE | 2024-10-28 16:03 | DVHPN2 ---
Subjective Doing well in bed Reviewed: H&P, Labs Changes from previous H/P or p: No Changes Objective Vitals Vital Signs Date Time Temp Pulse Resp B/P (MAP) Pulse Ox O2 Delivery O2 Flow Rate FiO2 10/28/24 14:12 138/74 10/28/24 13:16 97.8 75 18 94 97.8 10/28/24 08:00 Room Air* 0 21 Intake/Output Intake and Output 10/28/24 07:00 Intake Total 1460 ml Output Total 1150 ml Balance 310 ml Intake Oral 1410 ml IV Total 50 ml Output Urine Total 1150 ml General Appearance: Alert, Oriented X3 HEENT: Atraumatic Cardiovascular: Regular rate, Normal S1, Normal S2 Abdomen: Normal bowel sounds Extremities: Other Medications Current Medications Medications Dose Ordered Sig/Sherlyn Route Start Time Stop Time Status Last Admin Dose Admin Tamsulosin HCl 0.4 mg DAILY PO 10/21/24 19:45 10/28/24 08:33 0.4 MG Sodium Chloride 10 ml Q8HR IV 10/21/24 22:00 10/28/24 13:11 10 ML Ondansetron HCl 4 mg Q4HP PRN IV 10/21/24 19:45 Clopidogrel Bisulfate 75 mg DAILY PO 10/22/24 10:00 10/28/24 08:27 75 MG Metoprolol Tartrate 25 mg BID PO 10/21/24 22:00 10/28/24 08:28 25 MG Atorvastatin Calcium 40 mg DAILY PO 10/22/24 10:00 10/28/24 08:34 40 MG Rivaroxaban 2.5 mg BID PO 10/21/24 22:00 10/28/24 08:29 2.5 MG Diagnostic Test (Pha) 1 strip Q6HR 10/22/24 18:00 10/28/24 13:11 1 STRIP Insulin Human Regular Q6HR SC 10/22/24 18:00 10/28/24 13:14 3 UNITS Dextrose 50 ml UD PRN IV 10/22/24 12:15 Ceftriaxone Sodium 50 ml @ 100 mls/hr DAILY@09 IV 10/23/24 09:00 10/28/24 08:33 100 MLS/HR Nifedipine 60 mg BID PO 10/22/24 22:00 10/28/24 08:29 60 MG Hydralazine HCl 25 mg Q8HR PO 10/22/24 14:00 10/28/24 14:12 25 MG Methocarbamol 500 mg TID PO 10/22/24 14:00 10/28/24 14:11 500 MG Sennosides 8.6 mg HS PO 10/23/24 22:00 10/27/24 21:18 8.6 MG Docusate Sodium 100 mg BIDD PO 10/25/24 18:00 10/28/24 06:00 100 MG Lactulose 30 ml TID PRN PO 10/28/24 11:15 10/28/24 13:06 30 ML Morphine Sulfate 2 mg Q2HP PRN PO 10/28/24 11:15 Laboratory Results Laboratory Tests 10/26/24 05:28 Urinalysis Test 10/21/24 16:00 Urine Color Light-yellow (Yellow) Urine Clarity Clear (Clear) Urine pH 5.5 (5.0-9.0) Urine Specific [place] 1.008 (1.001-1.035) Urine Protein Negative (Negative) Urine Ketones Negative (Negative) Urine Blood 1+ /uL (Negative) H Urine Nitrite Negative (Negative) Urine Bilirubin Negative (Negative) Urine Urobilinogen Normal mg/dL (Negative) Urine Leukocyte Esterase Negative /uL (Negative) Urine RBC 17 /hpf (0 - 3) Urine Microscopic WBC 1 /HPF (0-3) Urine Squamous Epithelial Cells None seen /hpf (<5) Urine Bacteria None seen /hpf (None Seen) Urine Glucose Normal mg/dL (Normal) Assessment/Plan Assessment/Plan Acute bladder retention History of CVA right foot gangrene Podiatry signed off and will follow as outpatient not amenable for revascularization due to right leg being contracted Continue IV abx Dispo: Needs placement vs home arrangements Plan discussed with: Patient My Orders Orders - FINN ELMA MD Procedure Category Date Status Time Lactulose Oral PHA 10/28/24 In Process 11:15 Morphine Oral Soln PHA 10/28/24 In Process 11:15 Date of Service: Oct 28, 2024 Billing Provider: FINN LEMA MD Common Visit Codes: [id number] INP/OBS CARE(HIGH) FINN LEMA MD Oct 28, 2024 16:03
[2024-10-28] MEDS: MORPHINE SULFATE 10 MG/5 ML ORAL SOLN PO PRN (16:26)
[2024-10-28 17:00] VITALS: BP 145/79; PULSE 79; RESP 20; TEMP 97.6; O2SAT 95
[2024-10-28 21:00] VITALS: BP 148/96; PULSE 93; RESP 19; TEMP 98.2; O2SAT 97
[2024-10-29 01:00] VITALS: BP 153/57; PULSE 77; RESP 19; TEMP 98.1; O2SAT 98
[2024-10-29 05:00] VITALS: BP 154/77; PULSE 88; RESP 19; TEMP 98; O2SAT 96
[2024-10-29 09:00] VITALS: BP 127/50; PULSE 82; RESP 18; TEMP 97.4; O2SAT 97
[2024-10-29 13:00] VITALS: BP 134/70; PULSE 79; RESP 18; TEMP 97.2; O2SAT 94
--- NOTE | 2024-10-29 15:56 | DVHPN2 ---
Subjective Doing well in bed Reviewed: H&P, Labs Changes from previous H/P or p: No Changes Objective Vitals Vital Signs Date Time Temp Pulse Resp B/P (MAP) Pulse Ox O2 Delivery O2 Flow Rate FiO2 10/29/24 15:38 130/65 10/29/24 13:00 97.2 79 18 94 97.2 10/29/24 08:53 Room Air* 0 21 Intake/Output Intake and Output 10/29/24 07:00 Intake Total 1795 ml Output Total 1150 ml Balance 645 ml Intake Oral 1745 ml IV Total 50 ml Output Urine Total 1150 ml General Appearance: Alert, Oriented X3 HEENT: Atraumatic Cardiovascular: Regular rate, Normal S1, Normal S2 Abdomen: Normal bowel sounds Extremities: Other Medications Current Medications Medications Dose Ordered Sig/Sherlyn Route Start Time Stop Time Status Last Admin Dose Admin Tamsulosin HCl 0.4 mg DAILY PO 10/21/24 19:45 10/29/24 08:48 0.4 MG Sodium Chloride 10 ml Q8HR IV 10/21/24 22:00 10/29/24 11:43 10 ML Ondansetron HCl 4 mg Q4HP PRN IV 10/21/24 19:45 Clopidogrel Bisulfate 75 mg DAILY PO 10/22/24 10:00 10/29/24 08:48 75 MG Metoprolol Tartrate 25 mg BID PO 10/21/24 22:00 10/29/24 08:48 25 MG Atorvastatin Calcium 40 mg DAILY PO 10/22/24 10:00 10/29/24 08:48 40 MG Rivaroxaban 2.5 mg BID PO 10/21/24 22:00 10/29/24 11:57 2.5 MG Diagnostic Test (Pha) 1 strip Q6HR 10/22/24 18:00 10/29/24 11:43 1 STRIP Insulin Human Regular Q6HR SC 10/22/24 18:00 10/29/24 06:35 2 UNITS Dextrose 50 ml UD PRN IV 10/22/24 12:15 Ceftriaxone Sodium 50 ml @ 100 mls/hr DAILY@09 IV 10/23/24 09:00 10/29/24 08:47 100 MLS/HR Nifedipine 60 mg BID PO 10/22/24 22:00 10/29/24 08:47 60 MG Hydralazine HCl 25 mg Q8HR PO 10/22/24 14:00 10/29/24 15:38 25 MG Methocarbamol 500 mg TID PO 10/22/24 14:00 10/29/24 15:38 500 MG Sennosides 8.6 mg HS PO 10/23/24 22:00 10/28/24 23:17 8.6 MG Docusate Sodium 100 mg BIDD PO 10/25/24 18:00 10/29/24 06:36 100 MG Lactulose 30 ml TID PRN PO 10/28/24 11:15 10/29/24 06:36 30 ML Morphine Sulfate 2 mg Q2HP PRN PO 10/28/24 11:15 10/29/24 08:46 2 MG Laboratory Results Laboratory Tests 10/26/24 05:28 Urinalysis Test 10/21/24 16:00 Urine Color Light-yellow (Yellow) Urine Clarity Clear (Clear) Urine pH 5.5 (5.0-9.0) Urine Specific [place] 1.008 (1.001-1.035) Urine Protein Negative (Negative) Urine Ketones Negative (Negative) Urine Blood 1+ /uL (Negative) H Urine Nitrite Negative (Negative) Urine Bilirubin Negative (Negative) Urine Urobilinogen Normal mg/dL (Negative) Urine Leukocyte Esterase Negative /uL (Negative) Urine RBC 17 /hpf (0 - 3) Urine Microscopic WBC 1 /HPF (0-3) Urine Squamous Epithelial Cells None seen /hpf (<5) Urine Bacteria None seen /hpf (None Seen) Urine Glucose Normal mg/dL (Normal) Assessment/Plan Assessment/Plan Acute bladder retention History of CVA right foot gangrene Podiatry signed off and will follow as outpatient not amenable for revascularization due to right leg being contracted Continue IV abx Dispo: Needs placement vs home arrangements Plan discussed with: Patient Date of Service: Oct 29, 2024 Billing Provider: FINN LEMA MD Common Visit Codes: [id number] INP/OBS CARE(HIGH) FINN LEMA MD Oct 29, 2024 15:56
[2024-10-29 17:00] VITALS: BP 158/79; PULSE 78; RESP 18; TEMP 97.4; O2SAT 99
[2024-10-29 21:00] VITALS: BP 142/76; PULSE 76; RESP 18; TEMP 98; O2SAT 95
[2024-10-30 01:00] VITALS: BP 163/67; PULSE 80; RESP 18; TEMP 98.7; O2SAT 96
[2024-10-30 05:00] VITALS: BP 175/86; PULSE 81; RESP 18; TEMP 98; O2SAT 96
[2024-10-30 09:00] VITALS: BP 158/73; PULSE 63; RESP 17; TEMP 97.4; O2SAT 97
[2024-10-30 13:00] VITALS: BP 139/67; PULSE 68; RESP 17; TEMP 97.7; O2SAT 98
[2024-10-30 16:40] VITALS: BP 162/69; PULSE 79; RESP 17; TEMP 97.8; O2SAT 97
--- NOTE | 2024-10-30 17:59 | DVHPN2 ---
Subjective Doing well in bed Reviewed: H&P, Labs Changes from previous H/P or p: No Changes Objective Vitals Vital Signs Date Time Temp Pulse Resp B/P (MAP) Pulse Ox O2 Delivery O2 Flow Rate FiO2 10/30/24 16:40 97.8 79 17 162/69 (100) 97 97.8 10/30/24 08:14 Room Air* 0 21 Intake/Output Intake and Output 10/30/24 07:00 Intake Total 1620 ml Output Total 975 ml Balance 645 ml Intake Oral 1620 ml Output Urine Total 975 ml # Bowel Movements 1 General Appearance: Alert, Oriented X3 HEENT: Atraumatic Cardiovascular: Regular rate, Normal S1, Normal S2 Abdomen: Normal bowel sounds Extremities: Other Medications Current Medications Medications Dose Ordered Sig/Sherlyn Route Start Time Stop Time Status Last Admin Dose Admin Tamsulosin HCl 0.4 mg DAILY PO 10/21/24 19:45 10/30/24 09:14 0.4 MG Sodium Chloride 10 ml Q8HR IV 10/21/24 22:00 10/30/24 13:12 10 ML Ondansetron HCl 4 mg Q4HP PRN IV 10/21/24 19:45 Clopidogrel Bisulfate 75 mg DAILY PO 10/22/24 10:00 10/30/24 09:14 75 MG Metoprolol Tartrate 25 mg BID PO 10/21/24 22:00 10/30/24 09:15 25 MG Atorvastatin Calcium 40 mg DAILY PO 10/22/24 10:00 10/30/24 09:15 40 MG Rivaroxaban 2.5 mg BID PO 10/21/24 22:00 10/30/24 10:00 2.5 MG Diagnostic Test (Pha) 1 strip Q6HR 10/22/24 18:00 10/30/24 17:17 1 STRIP Insulin Human Regular Q6HR SC 10/22/24 18:00 10/30/24 12:06 6 UNITS Dextrose 50 ml UD PRN IV 10/22/24 12:15 Ceftriaxone Sodium 50 ml @ 100 mls/hr DAILY@09 IV 10/23/24 09:00 10/30/24 09:14 100 MLS/HR Nifedipine 60 mg BID PO 10/22/24 22:00 10/30/24 09:15 60 MG Hydralazine HCl 25 mg Q8HR PO 10/22/24 14:00 10/30/24 13:12 25 MG Methocarbamol 500 mg TID PO 10/22/24 14:00 10/30/24 13:12 500 MG Sennosides 8.6 mg HS PO 10/23/24 22:00 10/29/24 22:22 8.6 MG Docusate Sodium 100 mg BIDD PO 10/25/24 18:00 10/30/24 17:16 100 MG Lactulose 30 ml TID PRN PO 10/28/24 11:15 10/30/24 12:01 30 ML Morphine Sulfate 2 mg Q2HP PRN PO 10/28/24 11:15 10/29/24 22:05 2 MG Laboratory Results Laboratory Tests 10/26/24 05:28 Urinalysis Test 10/21/24 16:00 Urine Color Light-yellow (Yellow) Urine Clarity Clear (Clear) Urine pH 5.5 (5.0-9.0) Urine Specific [place] 1.008 (1.001-1.035) Urine Protein Negative (Negative) Urine Ketones Negative (Negative) Urine Blood 1+ /uL (Negative) H Urine Nitrite Negative (Negative) Urine Bilirubin Negative (Negative) Urine Urobilinogen Normal mg/dL (Negative) Urine Leukocyte Esterase Negative /uL (Negative) Urine RBC 17 /hpf (0 - 3) Urine Microscopic WBC 1 /HPF (0-3) Urine Squamous Epithelial Cells None seen /hpf (<5) Urine Bacteria None seen /hpf (None Seen) Urine Glucose Normal mg/dL (Normal) Assessment/Plan Assessment/Plan Acute bladder retention History of CVA right foot gangrene Podiatry signed off and will follow as outpatient not amenable for revascularization due to right leg being contracted Continue IV abx Dispo: Needs placement vs home arrangements Plan discussed with: Patient Date of Service: Oct 30, 2024 Billing Provider: FINN LEMA MD Common Visit Codes: [id number] INP/OBS CARE(HIGH) FINN LEMA MD Oct 30, 2024 17:59
[2024-10-30 21:00] VITALS: BP 167/80; PULSE 83; RESP 18; TEMP 97.4; O2SAT 96
[2024-10-31 01:00] VITALS: BP 170/68; PULSE 74; RESP 18; TEMP 98.1; O2SAT 98
[2024-10-31 05:00] VITALS: BP 160/55; PULSE 65; RESP 17; TEMP 97.7; O2SAT 96
[2024-10-31 08:31] VITALS: BP 149/72; PULSE 90; RESP 20; TEMP 97.7; O2SAT 97
[2024-10-31 12:31] VITALS: BP 147/65; PULSE 66; RESP 18; TEMP 98.3; O2SAT 98
--- NOTE | 2024-10-31 16:31 | DVHDS2 ---
Discharge Summary Date of Admission Oct 21, 2024 at 19:38 Date of Discharge: Oct 31, 2024 Labs/Diagnostic Data: Laboratory Results Test 10/31/24 06:13 10/26/24 05:28 10/25/24 05:16 10/22/24 05:01 POC Glucose 149 mg/dl (70-106) White Blood Count 7.3 10^3/uL (4.4-10.8) Red Blood Count 5.40 10^6/uL (4.5-5.90) Hemoglobin 14.4 g/dL (13.5-17.5) Hematocrit 44.3 % (41.0-53.0) Mean Corpuscular Volume 82.0 fL (80.0-100.0) Mean Corpuscular Hemoglobin 26.7 pg (28.0-32.0) Mean Corpuscular Hemoglobin Concent 32.5 g/dL (32.0-36.0) Red Cell Distribution Width 15.5 % (11.8-14.3) Platelet Count 694 10^3/uL (140-450) Mean Platelet Volume 7.8 fL (6.9-10.8) Neutrophils (%) (Auto) 76.0 % (37.0-80.0) Lymphocytes (%) (Auto) 9.9 % (10.0-50.0) Monocytes (%) (Auto) 13.0 % (0.0-12.0) Eosinophils (%) (Auto) 0.5 % (0.0-7.0) Basophils (%) (Auto) 0.6 % (0.0-2.0) Neutrophils # (Auto) 5.5 10 ^3/uL (1.6-8.6) Lymphocytes # (Auto) 0.7 10 ^3/uL (0.4-5.4) Monocytes # (Auto) 0.9 10 ^3/uL (0-1.3) Eosinophils # (Auto) 0 10 ^3/uL (0-0.8) Basophils # (Auto) 0 10 ^3/uL (0-0.2) Nucleated Red Blood Cells 0.1 % Sodium Level 140 mmol/L (136-145) Potassium Level 3.5 mmol/L (3.5-5.1) Chloride Level 107 mmol/L (98-107) Carbon Dioxide Level 25 mmol/L (20-31) Anion Gap 8 (5-15) Blood Urea Nitrogen 15 mg/dL (9-23) Creatinine 0.88 mg/dL (0.700-1.30) Glomerular Filtration Rate Calc 87 mL/min (>90) BUN/Creatinine Ratio 17.0 (10.0-20.0) Serum Glucose 167 mg/dL (74-106) Calcium Level 10.0 mg/dL (8.7-10.4) Total Bilirubin 0.4 mg/dL (0.2-1.0) Aspartate Amino Transferase (AST) 50 U/L (13-40) Alanine Aminotransferase (ALT) 34 U/L (7-40) Alkaline Phosphatase 82 U/L (46-116) Total Protein 6.8 g/dL (5.7-8.2) Albumin 4.2 g/dL (3.2-4.8) Platelet Estimate Markedly increased Large Platelets Few Giant Platelets Few Poikilocytosis (manual) Slight Anisocytosis (manual) Slight Tear Drop Cells Few [place] Cells Few Hemoglobin A1c 6.5 % A1C (<5.7) Hepatitis B Surface Antigen Negative (Negative) Hepatitis C Antibody Negative (Negative) Test 10/21/24 16:00 10/21/24 15:52 Urine Color Light-yellow (Yellow) Urine Clarity Clear (Clear) Urine pH 5.5 (5.0-9.0) Urine Specific [place] 1.008 (1.001-1.035) Urine Protein Negative (Negative) Urine Ketones Negative (Negative) Urine Blood 1+ /uL (Negative) Urine Nitrite Negative (Negative) Urine Bilirubin Negative (Negative) Urine Urobilinogen Normal mg/dL (Negative) Urine Leukocyte Esterase Negative /uL (Negative) Urine RBC 17 /hpf (0 - 3) Urine Microscopic WBC 1 /HPF (0-3) Urine Squamous Epithelial Cells None seen /hpf (<5) Urine Bacteria None seen /hpf (None Seen) Urine Glucose Normal mg/dL (Normal) Microcytosis Slight Macrocytosis Slight Ovalocytes Few Lactic Acid Level 1.4 mmol/L (0.4-2.0) C-Reactive Protein High Sensitivity 0.93 mg/dL (<1.0) Other Laboratory Tests 10/26/24 05:28 Brief Hx & Hospital Course: 78y M who presents to the ED via EMS for chief complaint of urinary complaints, EMS states they were called to the scene after has been having difficulty voiding for the past 1 hours- EMS arrived on scene and noted pt was lying in bed with noted urine on bed and pt voiding in near by garbage can- pt is bed bound and states he has been having RLQ and R leg pain and notes despite using CBD oil on the penis, he is continuing to have pain- pt states his pain started las night at 2000 but states it has been exacerbated to due the urinary retention- pt states he has intermittent episodes of urinary retention but states he called EMS due to increasing pain not experienced before while having difficulty attempting to void- Pt has noted R knee hyperflexion contractions which he states is baseline. Patient has home health nurse Wednesday through Wednesday but not on weekends.Patient did not take his blood pressure medications today. During hospital stay treated for right sided cellulitis of toe Seen by podiatry and recommended 3rd toe amputation but refused Condition at Discharge: Good Final Diagnosis/Problems List cellulitis Discharge Disposition: Home Discharge Instruct/Medications Diet: Regular Activity: No Restrictions, As Tolerated Follow Up/Referral: PCP in 7 days Medications: kendall palumbo Scheduled Aspirin (Aspirin Low Dose), 81 MG PO DAILY Atorvastatin Calcium (Atorvastatin Calcium), 1 TAB PO DAILY, (Reported) Clopidogrel Bisulfate (Clopidogrel), 75 MG PO DAILY Hydrochlorothiazide (Hydrochlorothiazide), 1 TAB PO DAILY, (Reported) Metoprolol Tartrate (Lopressor), 25 MG PO BID Nifedipine (Nifedipine Er), 60 MG PO DAILY, (Reported) Nifedipine (Nifedipine Er), 90 MG PO DAILY Rivaroxaban (Xarelto), 2.5 MG PO BID Senna (Senna), 8.6 MG PO HS Verapamil Hcl (Verapamil Hcl Er), 1 CAP PO DAILY, (Reported) Scheduled PRN Oxycodone W/ Acetaminophen (Percocet 5/325MG), 2 TAB PO Q4HP PRN Discharge Statement: "Patient was advised to return to the ER or call 911 if any headaches, dizziness, shortness of breath, chest pain, abdominal pain, bleeding, fevers, or worsening of medical condition. Patient was counseled about treatment plan, medications, possible side effects, patientverbalized understanding. All questions were answered to the best of my ability. This discharge took greater then 30 minutes in planning, reviewing documentation, counseling the patient, and discussing with other team members." ASSESSMENT ASSESSMENT Assessment cellulitis Date of Service: Oct 31, 2024 Billing Provider: FINN LEMA MD Common Visit Codes: [id number] DISCH DAY >30min FINN LEMA MD Oct 31, 2024 16:31
[2024-10-31 16:41] VITALS: BP 123/79; PULSE 78; RESP 18; TEMP 98; O2SAT 97
== END 2024-10-31 16:56 | disposition home or self-care (01) | DRG 299 ==
LOC: EDBD 14:50 → ER 14:50 → OVERFLOW 19:38 → WEST WING 21:40
PROVIDERS: ADMIT Hospitalist; ATTEND Hospitalist
DX: E11.52 Type 2 diabetes mellitus with diabetic peripheral angiopathy with gangrene (principal); R53.2 Functional quadriplegia; I16.9 Hypertensive crisis, unspecified; L03.116 Cellulitis of left lower limb; R33.9 Retention of urine, unspecified; M43.16 Spondylolisthesis, lumbar region; Z79.01 Long term (current) use of anticoagulants; Z74.01 Bed confinement status; Z86.73 Personal history of transient ischemic attack (TIA), and cerebral infarction without residual deficits; Z87.891 Personal history of nicotine dependence; Z88.6 Allergy status to analgesic agent; Z88.2 Allergy status to sulfonamides; Z79.899 Other long term (current) drug therapy
CPT/HCPCS: 36415; 73620; 74176; 80053; 81001; 82962; 83036; 83605; 85025; 86141; 86803; 87340; 93005; 93306; 93926; 96374; G0378; J1815